=== PATIENT | male | born 1990 | race African-American/Black ===

== ENCOUNTER 2017-07-14 01:56 | Emergency (ER) | payer SELFPAY ==
[~2017-07-14] VITALS: Ht 182.9 cm; Wt 59.0 kg
[~2017-07-14 01:56] MED LIST: ONDA4TAB10 SL
[2017-07-14] MEDS ORDERED: ONDANSETRON PF 4 MG/2 ML VIAL. IV ONE (02:30)
[2017-07-14] MEDS ORDERED: IV NORMAL SALINE 1000ML BAG 1,000 ML IV ONE (02:30)
[2017-07-14 02:47] LABS: BILIRUBIN,URINE SMALL (NEG); GLUCOSE,URINE NEGATIVE (NEG); NITRITE,URINE NEGATIVE (NEG); PROTEIN,URINE 30 mg/dL (NEG-TRACE); UROBILINOGEN,URINE 0.2 mg/dL (0.2 mg/dL)
[2017-07-14 02:49] LABS: BASO # 0.1 x10^3/uL (0.0-0.2); BASO % 1 % (0-3); EOS % 0 % (0-3); HEMATOCRIT 42.5 % (39.0-53.0); HEMOGLOBIN 14.1 g/dL (13.0-17.5); LYMPH # 1.8 x10^3/uL (1.0-4.8); LYMPH % 28 % (24-48); MEAN CORPUSCULAR HEMOGLOBIN 30 pg (25-35); MEAN CORPUSCULAR HGB CONC 33 g/dL (31-37); MEAN CORPUSCULAR VOLUME 89 fL (79-100); MONO % 5 % (0-9); NEUT % 66 % (31-73); PLATELET COUNT 277 x10^3/uL (140-400); RED BLOOD COUNT 4.75 x10^6/uL (4.30-5.70); RED CELL DISTRIBUTION WIDTH 13.3 % (11.5-14.5); WHITE BLOOD COUNT 6.5 x10^3/uL (4.0-11.0)
[2017-07-14 02:59] LABS: CALCIUM 10.3 mg/dL (8.5-10.1); GFR 49.1; POTASSIUM 4.2 mmol/L (3.5-5.1)
[2017-07-14] MEDS ORDERED: HYDROmorphone 2 MG/ML VIAL IV ONE (03:00)
[2017-07-14 03:02] LABS: BACTERIA,URINE FEW /HPF (0-FEW); SQUAMOUS EPITHELIAL CELL,UR FEW /LPF
[2017-07-14 03:05] LABS: ALBUMIN 4.6 g/dL (3.4-5.0); ALBUMIN/GLOBULIN RATIO 1.2 (1.0-1.7); TOTAL BILIRUBIN 1.2 mg/dL (0.2-1.0); TOTAL PROTEIN 8.3 g/dL (6.4-8.2)
--- NOTE | 2017-07-14 03:06 | RAD ---
PQRS Compliance Statement: One or more of the following individualized dose reduction techniques were utilized for this examination: 1. Automated exposure control 2. Adjustment of the mA and/or kV according to patient size 3. Use of iterative reconstruction technique CT abdomen/pelvis without contrast July 14, 2017 INDICATION: Right lower quadrant pain. History of nephrectomy. COMPARISON: CT abdomen/pelvis March 22, 2016 TECHNIQUE: Multiple axial CT images of the abdomen and pelvis were obtained without intravenous contrast. Coronal and sagittal reformats are provided. FINDINGS: The lung bases are clear. Heart size is within normal limits. Evaluation of solid abdominal viscera is limited by lack of intravenous contrast. The liver, spleen, bilateral adrenal glands, pancreas and gallbladder are normal in appearance. The abdominal aorta is normal in course and caliber. Evaluation for abdominal and pelvic lymphadenopathy is limited by the lack of intravenous contrast and intraperitoneal fat. There is no free fluid or free intraperitoneal air. Right kidney surgically absent. No calculi are identified in the left kidney. Left ureter is difficult to evaluate due to the lack of intraperitoneal fat. Small large bowel are normal in caliber without evidence for bowel obstruction. The lack of intraperitoneal fat and oral contrast limits evaluation of the bowel. Scattered areas of retained oral contrast noted, however inadequate to effectively evaluate for bowel inflammatory changes. Appendix is not definitively visualized. No definite inflammatory changes are noted in the right lower quadrant, however this is significantly limited by lack of intraperitoneal fat. No pelvic masses are identified. Urinary bladder is within normal limits given degree of distention. No suspicious osseous lesions are identified. IMPRESSION: 1. Findings are significantly limited by lack of intravenous contrast and intraperitoneal fat. The appendix is not definitively visualized. 2. No evidence for bowel obstruction. 3. Status post right nephrectomy. Electronically signed by: Cristina Wheeler MD (07/14/2017 3:03 AM) [facility]
[2017-07-14] MEDS ORDERED: PROM25TA10 PO (03:48)
--- NOTE | 2017-07-14 03:48 | PHYS DOC ---
Past Medical History Past Medical History: Other Additional Past Medical Histor: R kidney (non-cancerous cyst) prior to removal ; Alcohol Syndrome Past Surgical History: Other Additional Past Surgical Histo: Right kidney removal (non-cancerous cyst found ) 02/25/17 Alcohol Use: None Drug Use: Marijuana Social History Narrative: daily Adult General Chief Complaint Chief Complaint: NAUSEA/VOMITING/DIARRHA HPI HPI Patient is a 27 year old gentleman who presents here today secondary to nausea and vomiting since 11 the morning. Patient denies any diarrhea. Patient has any fevers shakes chills dysuria frequency urgency cough cold rhinorrhea chest pain shortness of breath melena or bright red blood per rectum. Patient is complaining of some periumbilical discomfort. Patient has a history significant for a nephrectomy secondary to assist on his kidney. Patient reports she smokes and occasionally smokes marijuana. Patient denies any alcohol use. Patient denies any hypertension diabetes liver or lung problems. Review of systems: Constitutional: Denies fever or chills Eyes: Denies change in visual acuity, redness, or eye pain HENT: Denies nasal congestion or sore throat All other systems were reviewed and found to be within normal limits, except as documented in this note. Physical exam: Constitutional: Well developed, well nourished, no acute distress, non-toxic appearance. HENT: Normocephalic, atraumatic, bilateral external ears normal Eyes: PERRLA, EOMI, conjunctiva normal, no discharge. Neck: Normal range of motion, no tenderness, supple, no stridor. Cardiovascular:Heart rate regular rhythm Lungs & Thorax: Bilateral breath sounds clear to auscultation Abdomen: Bowel sounds normal, soft, mild tenderness tenderness to palpation diffusely. No rebound or guarding. Normal active bowel sounds. Patient does not present with any signs or symptoms of be consistent or concerning for an acute surgical abdomen., no masses, no pulsatile masses. Skin: Warm, dry, no erythema, no rash. Back: No tenderness, no CVA tenderness. Extremities: No tenderness, no cyanosis, no clubbing, ROM intact, no edema. Neurologic: Alert and oriented X 3, normal motor function, normal sensory function, no focal deficits noted. Psychologic: Affect normal, judgement normal, mood normal. Assessment and plan: This is a 27-year-old gentleman who presents here today secondary to nausea and vomiting. Patient's ER workup is been unremarkable except for an elevated creatinine. Patient's elevated creatinine is most likely secondary to dehydration from his nausea and vomiting. Patient's creatinine is 2.0 which is elevated from his last creatinine that we have here which was over a year ago. Patient's clinically and hemodynamically stable at this time. Patient has CT scan of his abdomen pelvis without IV contrast secondary to his history of a nephrectomy. Patient has been given IV fluids and analgesia and feels 100% improved in the ED at 3:30 AM. Patient's repeat abdominal exam shows no tenderness to palpation. Patient has no rebound or guarding. Was again patient is not exhibiting any signs or symptoms O be consistent with an acute surgical abdomen. Patient will be discharged home in stable condition with prescription for Reglan and to continue his Zofran. Patient is to follow-up with his primary care physician within one to 2 days for reevaluation of his symptoms. Current Medications Current Medications Current Medications Medications (Trade) Dose Ordered Sig/Joel Start Time Stop Time Status Last Admin Dose Admin Hydromorphone HCl (Dilaudid) 1 mg 1X ONCE 07/14/17 03:00 07/14/17 03:01 DC 07/14/17 02:39 1 MG Ondansetron HCl (Zofran) 4 mg 1X ONCE 07/14/17 02:30 07/14/17 02:31 DC 07/14/17 02:37 4 MG Sodium Chloride 1,000 ml @ 1,000 mls/hr 1X ONCE 07/14/17 02:30 07/14/17 03:29 DC 07/14/17 02:37 1,000 MLS/HR Allergies Allergies Allergies Coded Allergies Type Severity Reaction Last Updated Verified No Known Drug Allergies 03/18/16 No Current Patient Data Vital Signs Vital Signs Date Time Temp Pulse Resp B/P (MAP) Pulse Ox O2 Delivery O2 Flow Rate FiO2 07/14/17 02:39 21 98 07/14/17 02:15 97.8 59 119/79 (92) Room Air 97.8 Lab Values Laboratory Tests Test 07/14/17 02:00 07/14/17 02:30 Urine Collection Type Unknown Urine Color Noemí Urine Clarity Clear Urine pH 6.0 Urine Specific [place] >=1.030 Urine Protein 30 mg/dL (NEG-TRACE) Urine Glucose (UA) Negative mg/dL (NEG) Urine Ketones (Stick) 15 mg/dL (NEG) Urine Blood Negative (NEG) Urine Nitrite Negative (NEG) Urine Bilirubin Small (NEG) Urine Urobilinogen Dipstick 0.2 mg/dL (0.2 mg/dL) Urine Leukocyte Esterase Negative (NEG) Urine RBC 6-10 /HPF (0-2) Urine WBC 1-4 /HPF (0-4) Urine Squamous Epithelial Cells Few /LPF Urine Bacteria Few /HPF (0-FEW) Urine Mucus Marked /LPF White Blood Count 6.5 x10^3/uL (4.0-11.0) Red Blood Count 4.75 x10^6/uL (4.30-5.70) Hemoglobin 14.1 g/dL (13.0-17.5) Hematocrit 42.5 % (39.0-53.0) Mean Corpuscular Volume 89 fL (79-100) Mean Corpuscular Hemoglobin 30 pg (25-35) Mean Corpuscular Hemoglobin Concent 33 g/dL (31-37) Red Cell Distribution Width 13.3 % (11.5-14.5) Platelet Count 277 x10^3/uL (140-400) Neutrophils (%) (Auto) 66 % (31-73) Lymphocytes (%) (Auto) 28 % (24-48) Monocytes (%) (Auto) 5 % (0-9) Eosinophils (%) (Auto) 0 % (0-3) Basophils (%) (Auto) 1 % (0-3) Neutrophils # (Auto) 4.3 x10^3uL (1.8-7.7) Lymphocytes # (Auto) 1.8 x10^3/uL (1.0-4.8) Monocytes # (Auto) 0.3 x10^3/uL (0.0-1.1) Eosinophils # (Auto) 0.0 x10^3/uL (0.0-0.7) Basophils # (Auto) 0.1 x10^3/uL (0.0-0.2) Sodium Level 141 mmol/L (136-145) Potassium Level 4.2 mmol/L (3.5-5.1) Chloride Level 102 mmol/L (98-107) Carbon Dioxide Level 28 mmol/L (21-32) Anion Gap 11 (6-14) Blood Urea Nitrogen 19 mg/dL (8-26) Creatinine 2.0 mg/dL (0.7-1.3) H Estimated GFR (Cockcroft-Gault) 49.1 BUN/Creatinine Ratio 10 (6-20) Glucose Level 107 mg/dL (70-99) H Calcium Level 10.3 mg/dL (8.5-10.1) H Total Bilirubin 1.2 mg/dL (0.2-1.0) H Aspartate Amino Transferase (AST) 15 U/L (15-37) Alanine Aminotransferase (ALT) 22 U/L (16-63) Alkaline Phosphatase 118 U/L (46-116) H Total Protein 8.3 g/dL (6.4-8.2) H Albumin 4.6 g/dL (3.4-5.0) Albumin/Globulin Ratio 1.2 (1.0-1.7) Lipase 89 U/L (73-393) Laboratory Tests 07/14/17 02:30 Laboratory Tests 07/14/17 02:30 EKG EKG [] Radiology/Procedures Radiology/Procedures [] Course & Med Decision Making Course & Med Decision Making Pertinent Labs and Imaging studies reviewed. (See chart for details) [] Dragon Disclaimer Dragon Disclaimer This electronic medical record was generated, in whole or in part, using a voice recognition dictation system. Departure Departure Impression: Primary Impression: Abdominal pain Additional Impressions: Dehydration Elevated serum creatinine History of nephrectomy Disposition: HOME, SELF-CARE Condition: IMPROVED Referrals: NO PCP (PCP) Patient Instructions: Creatinine, Blood (Serum Creatinine), Dehydration, Adult , Nausea and Vomiting Additional Instructions: You were seen in the ER today secondary to dehydration from your nausea and vomiting. He workup in ER has been unremarkable. Your creatinine today is elevated compared to prior creatinine levels. This is most likely secondary to your dehydration however it is of greater concern in your case secondary to her history of a nephrectomy in the past. Please follow-up with her family doctor in one to 2 days to be reevaluated and have her creatinine repeated after he has been hydrated and feeling better at home. Please return the ER if you're not able keep down any liquids at any point in the next 12-24 hours. Continue taking her Zofran at home, we will add Phenergan in addition to Zofran to help you with your symptoms. Scripts Promethazine Hcl (PROMETHAZINE HCL) 25 Mg Tablet 1 TAB PO PRN Q6HRS Y for NAUSEA/VOMITING, #20 TAB Prov: LUCRECIA NORTON MD 07/14/17 Problem Qualifiers LUCRECIA NORTON MD Jul 14, 2017 03:48
[2017-07-14 04:08] VITALS: BP 112/67
== END 2017-07-14 04:15 | disposition home or self-care (01) ==
LOC: ER 01:56
DX: E86.0 Dehydration (principal); R79.89 Other specified abnormal findings of blood chemistry; R10.33 Periumbilical pain; F17.200 Nicotine dependence, unspecified, uncomplicated; F12.10 Cannabis abuse, uncomplicated; Z90.5 Acquired absence of kidney
CPT/HCPCS: 36415; 74176; 80053; 81001; 83690; 85025; 96361; 96374; 96375; 99285; J1170; J2405; J7030

== ENCOUNTER 2018-01-08 04:53 | Emergency (ER) | payer SELFPAY | END 2018-01-08 05:33 | disposition home or self-care (01) | LOC: ER 04:53 | DX: R10.84 Generalized abdominal pain (principal); G89.29 Other chronic pain; R11.2 Nausea with vomiting, unspecified; F12.10 Cannabis abuse, uncomplicated | CPT/HCPCS: 99281 ==

== ENCOUNTER 2018-04-07 12:22 | Emergency (ER) | payer SELFPAY ==
[2018-04-07] MEDS: IV NORMAL SALINE 1000ML BAG 1,000 ML IV (12:53)
[2018-04-07] MEDS: diphenhydrAMINE 50 MG/ML VIAL IVP (12:53)
[2018-04-07] MEDS: METOCLOPRAMIDE HCL 10 MG/2 ML VIAL. IV (12:53)
[2018-04-07 12:55] LABS: ADD MAN DIFF? NO
[2018-04-07 13:00] LABS: BASO # 0.1 x10^3/uL (0.0-0.2); BASO % 1 % (0-3); EOS # 0.1 x10^3/uL (0.0-0.7); EOS % 1 % (0-3); HEMOGLOBIN 15.9 g/dL (13.0-17.5); LYMPH # 2.3 x10^3/uL (1.0-4.8); LYMPH % 29 % (24-48); MEAN CORPUSCULAR HEMOGLOBIN 30 pg (25-35); MEAN CORPUSCULAR HGB CONC 34 g/dL (31-37); MEAN CORPUSCULAR VOLUME 87 fL (79-100); MONO # 0.5 x10^3/uL (0.0-1.1); MONO % 6 % (0-9); NEUT # 4.9 x10^3uL (1.8-7.7); NEUT % 63 % (31-73); PLATELET COUNT 399 x10^3/uL (140-400); RED BLOOD COUNT 5.39 x10^6/uL (4.30-5.70); RED CELL DISTRIBUTION WIDTH 13.6 % (11.5-14.5); WHITE BLOOD COUNT 7.8 x10^3/uL (4.0-11.0)
[2018-04-07 13:11] LABS: ANION GAP 14 (6-14); BLOOD UREA NITROGEN 14 mg/dL (8-26); BUN/CREATININE RATIO 8 (6-20); CALCIUM 10.4 mg/dL (8.5-10.1); CARBON DIOXIDE 25 mmol/L (21-32); CHLORIDE 99 mmol/L (98-107); CREATININE 1.8 mg/dL (0.7-1.3); GLUCOSE 107 mg/dL (70-99); POTASSIUM 4.3 mmol/L (3.5-5.1); SODIUM 138 mmol/L (136-145)
[2018-04-07 13:17] LABS: ALBUMIN 4.8 g/dL (3.4-5.0); ALBUMIN/GLOBULIN RATIO 1.1 (1.0-1.7); ALK PHOS 146 U/L (46-116); ALT (SGPT) 27 U/L (16-63); AST (SGOT) 20 U/L (15-37); LIPASE 181 U/L (73-393); TOTAL BILIRUBIN 0.8 mg/dL (0.2-1.0); TOTAL PROTEIN 9.2 g/dL (6.4-8.2)
[2018-04-07 13:40] LABS: BILIRUBIN,URINE SMALL (NEG); CLARITY,URINE CLEAR; COLOR,URINE YELLOW; GLUCOSE,URINE NEGATIVE (NEG); NITRITE,URINE NEGATIVE (NEG); PH,URINE 7.5; PROTEIN,URINE 30 mg/dL (NEG-TRACE); UROBILINOGEN,URINE 0.2 mg/dL (0.2 mg/dL)
[2018-04-07 13:44] LABS: BACTERIA,URINE 0 /HPF (0-FEW); RBC,URINE 0 /HPF (0-2); WBC,URINE OCC /HPF (0-4)
[2018-04-07 13:45] LABS: BARBITURATES NEG (NEG); BENZODIAZEPINES NEG (NEG); CANNABINOIDS POS (NEG); COCAINE NEG (NEG); METHADONE NEG (NEG); OPIATES NEG (NEG); PHENCYCLIDINE NEG (NEG)
[2018-04-07 13:50] LABS: AMPHETAMINE/METHAMPHETAMINE POS (NEG); ETHANOL, URINE NEG (NEG)
[2018-04-07] MEDS: fentaNYL PF VIAL 100 MCG/2 ML VIAL IV (13:54)
[2018-04-07] MEDS: MORPHINE SULFATE 4 MG/ML DISP.SYRIN. IV (15:07)
[2018-04-07] MEDS: PROCHLORPERAZINE 10 MG/2 ML VIAL. IV (15:07)
== END 2018-04-07 15:40 | disposition home or self-care (01) ==
LOC: ER 12:22
DX: G43.A0 Cyclical vomiting, in migraine, not intractable (principal); N18.9 Chronic kidney disease, unspecified; F12.10 Cannabis abuse, uncomplicated; Z90.5 Acquired absence of kidney; R00.0 Tachycardia, unspecified
CPT/HCPCS: 36415; 80053; 80307; 81001; 83690; 85025; 87086; 96374; 96375; 99284; J0780; J1200; J2270; J2765; J3010; J7030

== ENCOUNTER 2018-11-18 17:23 | Emergency (ER) | payer SELFPAY ==
[~2018-11-18] VITALS: Ht 182.9 cm; Wt 63.5 kg
[~2018-11-18 17:23] MED LIST changes: +ONDA4TAB7 PO; +PROM25TA10 PO; +TRAM50TA PO
[2018-11-18] MEDS ORDERED: ONDANSETRON PF 4 MG/2 ML VIAL. IV ONE (18:15)
[2018-11-18] MEDS ORDERED: DIPHTH,PERTUSS(ACELL),TET TOX 0.5 ML DISP.SYRIN. VAX IM ONE (18:15)
[2018-11-18] MEDS ORDERED: fentaNYL PF VIAL 100 MCG/2 ML VIAL IV ONE (18:15)
[2018-11-18] MEDS ORDERED: IV NORMAL SALINE 1000ML BAG 1,000 ML IV ONE (18:15)
[2018-11-18 18:17] LABS: BASO # 0.1 x10^3/uL (0.0-0.2); BASO % 1 % (0-3); EOS # 0.1 x10^3/uL (0.0-0.7); EOS % 2 % (0-3); HEMATOCRIT 45.1 % (39.0-53.0); HEMOGLOBIN 14.7 g/dL (13.0-17.5); LYMPH # 2.2 x10^3/uL (1.0-4.8); LYMPH % 27 % (24-48); MEAN CORPUSCULAR HEMOGLOBIN 28 pg (25-35); MEAN CORPUSCULAR HGB CONC 33 g/dL (31-37); MEAN CORPUSCULAR VOLUME 87 fL (79-100); MONO # 0.4 x10^3/uL (0.0-1.1); MONO % 4 % (0-9); NEUT # 5.4 x10^3uL (1.8-7.7); NEUT % 67 % (31-73); PLATELET COUNT 409 x10^3/uL (140-400); RED CELL DISTRIBUTION WIDTH 13.4 % (11.5-14.5); WHITE BLOOD COUNT 8.1 x10^3/uL (4.0-11.0)
[2018-11-18 18:23] LABS: CALCIUM 9.9 mg/dL (8.5-10.1); GFR 48.7; POTASSIUM 3.7 mmol/L (3.5-5.1)
[2018-11-18 18:29] LABS: ALBUMIN/GLOBULIN RATIO 0.8 (1.0-1.7); TOTAL BILIRUBIN 0.4 mg/dL (0.2-1.0)
--- NOTE | 2018-11-18 19:12 | RAD ---
ACUTE ABDOMEN SERIES History: NAUSEA, VOMITING, LOSS OF APPETITE X5 DAYS Comparison: None other than CT January 17, 2018 Findings: Single view chest and single supine and upright views of the abdomen are submitted. There is no infiltrate, pleural fluid, pneumothorax, or free air. Heart size is within normal limits. There is a nonobstructive bowel gas pattern, some greater degree gas distention of sigmoid colon. Impression: 1. There is an overall nonobstructive bowel gas pattern, somewhat greater degree of gas distention of the sigmoid colon. Electronically signed by: Sunny Whitfield MD (11/18/2018 7:09 PM) [facility]
[2018-11-18 19:24] LABS: BILIRUBIN,URINE SMALL (NEG); CLARITY,URINE CLEAR; COLOR,URINE YELLOW; NITRITE,URINE NEGATIVE (NEG); PH,URINE 6.5; PROTEIN,URINE 30 mg/dL (NEG-TRACE); UROBILINOGEN,URINE 0.2 mg/dL (0.2 mg/dL)
[2018-11-18 19:30] LABS: AMPHETAMINE/METHAMPHETAMINE NEG (NEG); BARBITURATES NEG (NEG); BENZODIAZEPINES NEG (NEG); CANNABINOIDS POS (NEG); COCAINE POS (NEG); METHADONE NEG (NEG); OPIATES POS (NEG); PHENCYCLIDINE NEG (NEG)
[2018-11-18 19:31] LABS: BACTERIA,URINE FEW /HPF (0-FEW); RBC,URINE 0 /HPF (0-2); SQUAMOUS EPITHELIAL CELL,UR OCC /LPF; WBC,URINE >40 /HPF (0-4)
[2018-11-18 20:00] VITALS: BP 122/55
[2018-11-18] MEDS ORDERED: ONDA4TAB12 PO (21:02)
[2018-11-18] MEDS ORDERED: TRAM50TA PO (21:02)
--- NOTE | 2018-11-18 21:03 | PHYS DOC ---
Past Medical History Past Medical History: Other Additional Past Medical Histor: ALCOHOL SYNDROME, cystic kidneys, CYCLIC VOMITING SYNDROME (KRISTINE BIRMINGHAM APRN) Past Surgical History: Other Additional Past Surgical Histo: LEFT NEPHRECTOMY 2017 (KRISTINE BIRMINGHAM APRN) Alcohol Use: None Drug Use: Marijuana (KRISTINE BIRMINGHAM APRN) Adult General Chief Complaint Chief Complaint: NAUSEA/VOMITING/DIARRHA HPI HPI Patient is a 28 year old male who presents with nausea and vomiting for several days. The patient states that he had been treated at for similar symptoms and was discharged 3 days ago. The patient states that his nausea and vomiting came back yesterday. He only has one kidney and states that he has reduced function at about 35%. He denies blood or mucus in his emesis or stool. He states that he has been using marijuana and cocaine to control his pain. He denies chest pain or shortness of breath. (KRISTINE BIRMINGHAM APRN) Review of Systems Review of Systems Constitutional: Denies fever or chills [] Eyes: Denies change in visual acuity, redness, or eye pain [] HENT: Denies nasal congestion or sore throat [] Respiratory: Denies cough or shortness of breath [] Cardiovascular: No additional information not addressed in HPI [] GI: See history of present illness : Denies dysuria or hematuria [] Musculoskeletal: Denies back pain or joint pain [] Integument: Denies rash or skin lesions [] Neurologic: Denies headache, focal weakness or sensory changes [] Endocrine: Denies polyuria or polydipsia [] All other systems were reviewed and found to be within normal limits, except as documented in this note. (KRISTIEN BIRMINGHAM APRN) Current Medications Current Medications Current Medications Medications (Trade) Dose Ordered Sig/Joel Start Time Stop Time Status Last Admin Dose Admin Ceftriaxone Sodium (Rocephin Im) 1 gm 1X ONCE 11/18/18 21:15 11/18/18 21:16 DC 11/18/18 21:21 1 GM Diphtheria/ Tetanus/Acell Pertussis (Boostrix) 0.5 ml ONCE ONCE 11/18/18 18:15 11/18/18 18:16 UNV Fentanyl Citrate (Fentanyl 2ml Vial) 75 mcg 1X ONCE 11/18/18 18:15 11/18/18 18:16 DC 11/18/18 18:20 75 MCG Lidocaine HCl (Xylocaine-Mpf 1% 2ml Vial) 2 ml 1X ONCE 11/18/18 21:15 11/18/18 21:16 DC 11/18/18 21:20 2 ML Ondansetron HCl (Zofran) 4 mg 1X ONCE 11/18/18 18:15 11/18/18 18:16 DC 11/18/18 18:19 4 MG Sodium Chloride 1,000 ml @ 1,000 mls/hr 1X ONCE 11/18/18 18:15 11/18/18 19:14 DC 11/18/18 18:19 1,000 MLS/HR (ALEX MILLER MD) Allergies Allergies Allergies Coded Allergies Type Severity Reaction Last Updated Verified No Known Drug Allergies 03/18/16 No (ALEX MILLER MD) Physical Exam Physical Exam Constitutional: Well developed, well nourished, no acute distress, non-toxic appearance. [] HENT: Normocephalic, atraumatic, bilateral external ears normal, oropharynx moist, no oral exudates, nose normal. [] Eyes: PERRLA, EOMI, conjunctiva normal, no discharge. [] Neck: Normal range of motion, no tenderness, supple, no stridor. [] Cardiovascular:Heart rate regular rhythm, no murmur [] Lungs & Thorax: Bilateral breath sounds clear to auscultation [] Abdomen: Bowel sounds normal, soft, mild epigastric tenderness, no guarding, no masses, no pulsatile masses. [] Skin: Warm, dry, no erythema, no rash. [] Back: No tenderness, no CVA tenderness. [] Extremities: No tenderness, no cyanosis, no clubbing, ROM intact, no edema. [] Neurologic: Alert and oriented X 3, normal motor function, normal sensory function, no focal deficits noted. [] Psychologic: Affect normal, judgement normal, mood normal. [] (KRISTINE BIRMINGHAM APRN) Current Patient Data Vital Signs Vital Signs Date Time Temp Pulse Resp B/P (MAP) Pulse Ox O2 Delivery O2 Flow Rate FiO2 11/18/18 20:00 67 16 122/55 (77) 99 Room Air 11/18/18 18:02 98.2 98.2 (ALEX MILLER MD) Lab Values Laboratory Tests Test 11/18/18 18:00 11/18/18 19:15 White Blood Count 8.1 x10^3/uL (4.0-11.0) Red Blood Count 5.20 x10^6/uL (4.30-5.70) Hemoglobin 14.7 g/dL (13.0-17.5) Hematocrit 45.1 % (39.0-53.0) Mean Corpuscular Volume 87 fL (79-100) Mean Corpuscular Hemoglobin 28 pg (25-35) Mean Corpuscular Hemoglobin Concent 33 g/dL (31-37) Red Cell Distribution Width 13.4 % (11.5-14.5) Platelet Count 409 x10^3/uL (140-400) H Neutrophils (%) (Auto) 67 % (31-73) Lymphocytes (%) (Auto) 27 % (24-48) Monocytes (%) (Auto) 4 % (0-9) Eosinophils (%) (Auto) 2 % (0-3) Basophils (%) (Auto) 1 % (0-3) Neutrophils # (Auto) 5.4 x10^3uL (1.8-7.7) Lymphocytes # (Auto) 2.2 x10^3/uL (1.0-4.8) Monocytes # (Auto) 0.4 x10^3/uL (0.0-1.1) Eosinophils # (Auto) 0.1 x10^3/uL (0.0-0.7) Basophils # (Auto) 0.1 x10^3/uL (0.0-0.2) Sodium Level 137 mmol/L (136-145) Potassium Level 3.7 mmol/L (3.5-5.1) Chloride Level 96 mmol/L (98-107) L Carbon Dioxide Level 35 mmol/L (21-32) H Anion Gap 6 (6-14) Blood Urea Nitrogen 13 mg/dL (8-26) Creatinine 2.0 mg/dL (0.7-1.3) H Estimated GFR (Cockcroft-Gault) 48.7 BUN/Creatinine Ratio 7 (6-20) Glucose Level 108 mg/dL (70-99) H Calcium Level 9.9 mg/dL (8.5-10.1) Total Bilirubin 0.4 mg/dL (0.2-1.0) Aspartate Amino Transferase (AST) 13 U/L (15-37) L Alanine Aminotransferase (ALT) 20 U/L (16-63) Alkaline Phosphatase 130 U/L (46-116) H Total Protein 9.0 g/dL (6.4-8.2) H Albumin 4.0 g/dL (3.4-5.0) Albumin/Globulin Ratio 0.8 (1.0-1.7) L Urine Collection Type Void Urine Color Yellow Urine Clarity Clear Urine pH 6.5 Urine Specific [place] >=1.030 Urine Protein 30 mg/dL (NEG-TRACE) Urine Glucose (UA) Negative mg/dL (NEG) Urine Ketones (Stick) Negative mg/dL (NEG) Urine Blood Negative (NEG) Urine Nitrite Negative (NEG) Urine Bilirubin Small (NEG) Urine Urobilinogen Dipstick 0.2 mg/dL (0.2 mg/dL) Urine Leukocyte Esterase Moderate (NEG) Urine RBC 0 /HPF (0-2) Urine WBC >40 /HPF (0-4) Urine Squamous Epithelial Cells Occ /LPF Urine Bacteria Few /HPF (0-FEW) Urine Mucus Mod /LPF Urine Opiates Screen Pos (NEG) Urine Methadone Screen Neg (NEG) Urine Barbiturates Neg (NEG) Urine Phencyclidine Screen Neg (NEG) Urine Amphetamine/Methamphetamine Neg (NEG) Urine Benzodiazepines Screen Neg (NEG) Urine Cocaine Screen Pos (NEG) Urine Cannabinoids Screen Pos (NEG) Urine Ethyl Alcohol Neg (NEG) Laboratory Tests 11/18/18 18:00 Laboratory Tests 11/18/18 18:00 Microbiology 11/18/18 Urine Culture - Final, Complete 11/18/18 Urine Culture Result 1 (JEY) - Final, Complete (ALEX MILLER MD) EKG EKG [] (KRISTINE BIRMINGHAM APRN) Radiology/Procedures Radiology/Procedures []PATIENT: LILLIAN BRANCH LACCOUNT: [id number]#: [id number] : 1990 LOCATION: ER AGE: 28 SEX: M EXAM STATUS: PRE ER ORD. PHYSICIAN: KRISTINE BIRMINGHAM APRN REASON: nausea, vomiting PROCEDURE: ACUTE ABDOMEN SERIES ACUTE ABDOMEN SERIES History: NAUSEA, VOMITING, LOSS OF APPETITE X5 DAYS Comparison: None other than CT January 17, 2018 Findings: Single view chest and single supine and upright views of the abdomen are submitted. There is no infiltrate, pleural fluid, pneumothorax, or free air. Heart size is within normal limits. There is a nonobstructive bowel gas pattern, some greater degree gas distention of sigmoid colon. Impression: 1. There is an overall nonobstructive bowel gas pattern, somewhat greater degree of gas distention of the sigmoid colon. Electronically signed by: Iliana Machado MD (11/18/2018 7:09 PM) [facility] DICTATED and SIGNED BY: ILIANA MACHADO MD DATE: 11/18/181908 (KRISTINE BIRMINGHAM APRN) Course & Med Decision Making Course & Med Decision Making Pertinent Labs and Imaging studies reviewed. (See chart for details) []The patient is positive for urinary tract infection. He has been given a small amount of pain medicine as well as antibiotics and a Zofran to control his symptoms. He is to follow-up with his primary care provider. He is in agreement with this plan. (KRISTINE BIRMINGHAM APRN) Course & Med Decision Making Staff Physician Addendum: I was working in the ER during the course of this patient's visit. I was available for consultation as needed, but I was not directly involved in the care of this patient. (ALEX MILLER MD) Dragon Disclaimer Dragon Disclaimer This electronic medical record was generated, in whole or in part, using a voice recognition dictation system. (KRISTINE BIRMINGHAM APRN) Departure Departure Impression: Primary Impression: Nausea and vomiting Disposition: 01 HOME, SELF-CARE Condition: STABLE Referrals: NO PCP (PCP) Patient Instructions: Nausea and Vomiting Additional Instructions: Take the medication as directed. Increase fluids and rest. Follow-up with your primary care provider in 3 days for recheck. If worsening return to the emergency department. Scripts Cephalexin (KEFLEX) 500 Mg Capsule 500 MG PO QID for UTI for 10 Days, #40 CAP Prov: KRISTINE BIRMINGHAM APRN 11/18/18 Tramadol Hcl (TRAMADOL HCL) 50 Mg Tablet 50 MG PO DAILY PRN for PAIN, #10 TAB 0 Refills Prov: KRISTINE BIRMINGHAM APRN 11/18/18 Ondansetron (ONDANSETRON ODT) 4 Mg Tab.rapdis 1 TAB PO PRN Q6-8HRS for nausea, #16 TAB Prov: KRISTINE BIRMINGHAM APRN 11/18/18 KRISTINE BIRMINGHAM APRN Nov 18, 2018 21:03 ALEX MILLER MD Nov 28, 2018 17:09
[2018-11-18] MEDS ORDERED: CEPH-264 PO (21:13)
[2018-11-18] MEDS ORDERED: cefTRIAXone IM 1 GM VIAL IM ONE (21:15)
[2018-11-18] MEDS ORDERED: LIDOCAINE 1% PF 2 ML VIAL. INJ ONE (21:15)
== END 2018-11-18 21:23 | disposition home or self-care (01) ==
LOC: ER 17:23
DX: R11.2 Nausea with vomiting, unspecified (principal); R10.13 Epigastric pain; Z90.5 Acquired absence of kidney
CPT/HCPCS: 36415; 74022; 80053; 80307; 81001; 85025; 87086; 96361; 96372; 96374; 96375; 99284; J0696; J2405; J3010; J7030

== ENCOUNTER 2019-01-28 10:30 | Emergency (ER) | payer SELFPAY ==
[~2019-01-28] VITALS: Ht 182.9 cm; Wt 59.0 kg
[~2019-01-28 10:30] MED LIST changes: +CEPH-264 PO; +ONDA4TAB12 PO
[2019-01-28] MEDS ORDERED: IV NORMAL SALINE 1000ML BAG 1,000 ML IV SCH (10:42)
[2019-01-28] MEDS ORDERED: ONDANSETRON PF 4 MG/2 ML VIAL. IV ONE (10:45)
[2019-01-28] MEDS ORDERED: fentaNYL PF VIAL 100 MCG/2 ML VIAL IV ONE (10:45)
[2019-01-28] MEDS ORDERED: diphenhydrAMINE 50 MG/ML VIAL IVP ONE (11:00)
[2019-01-28] MEDS ORDERED: IV NORMAL SALINE 1000ML BAG 1,000 ML IV ONE (11:00)
[2019-01-28 11:11] LABS: BASO % 1 % (0-3); EOS % 0 % (0-3); HEMATOCRIT 43.4 % (39.0-53.0); HEMOGLOBIN 14.4 g/dL (13.0-17.5); LYMPH # 1.3 x10^3/uL (1.0-4.8); LYMPH % 16 % (24-48); MEAN CORPUSCULAR HEMOGLOBIN 29 pg (25-35); MEAN CORPUSCULAR HGB CONC 33 g/dL (31-37); MEAN CORPUSCULAR VOLUME 87 fL (79-100); MONO # 0.3 x10^3/uL (0.0-1.1); MONO % 3 % (0-9); NEUT # 6.3 x10^3uL (1.8-7.7); NEUT % 80 % (31-73); PLATELET COUNT 343 x10^3/uL (140-400); RED BLOOD COUNT 4.98 x10^6/uL (4.30-5.70); RED CELL DISTRIBUTION WIDTH 14.6 % (11.5-14.5); WHITE BLOOD COUNT 7.9 x10^3/uL (4.0-11.0)
[2019-01-28 11:32] LABS: CALCIUM 10.9 mg/dL (8.5-10.1); CREATININE 1.7 mg/dL (0.7-1.3); GFR 58.8; POTASSIUM 3.8 mmol/L (3.5-5.1)
[2019-01-28 11:37] LABS: ALBUMIN/GLOBULIN RATIO 1.4 (1.0-1.7); TOTAL BILIRUBIN 1.1 mg/dL (0.2-1.0); TOTAL PROTEIN 8.7 g/dL (6.4-8.2)
--- NOTE | 2019-01-28 12:03 | PHYS DOC ---
Past Medical History Past Medical History: Renal Disease, Other Additional Past Medical Histor: ALCOHOL SYNDROME, cystic kidneys, CYCLIC VOMITING SYNDROME Past Surgical History: Other Additional Past Surgical Histo: LEFT NEPHRECTOMY 2017 Alcohol Use: None Drug Use: Marijuana Adult General Chief Complaint Chief Complaint: ABDOMINAL PAIN HPI HPI Patient is a 28 year old male who presents with pending of vomiting and abdominal pain. Patient has history of cyclic vomiting syndrome and chronic renal insufficiency related to unilateral nephrectomy. Patient complaining of frequent episodes of nonbloody vomiting for the last 48 hours and states he vomited more than 10 times every day. Patient complaining of generalized abdominal sharp pain and rated his pain 10 over 10. Patient denies diarrhea and constipation, chest pain and shortness of breath, sick contact, fever and chills, drug abuse. Patient has had episodes of cyclic vomiting syndrome for the last 2 years intermittently. Review of Systems Review of Systems Constitutional: Denies fever or chills [] Eyes: Denies change in visual acuity, redness, or eye pain [] HENT: Denies nasal congestion or sore throat [] Respiratory: Denies cough or shortness of breath [] Cardiovascular: No additional information not addressed in HPI [] GI: Reports abdominal pain, nausea, vomiting, denies bloody stools or diarrhea [] : Denies dysuria or hematuria [] Musculoskeletal: Denies back pain or joint pain [] Integument: Denies rash or skin lesions [] Neurologic: Denies headache, focal weakness or sensory changes [] Endocrine: Denies polyuria or polydipsia [] All other systems were reviewed and found to be within normal limits, except as documented in this note. Current Medications Current Medications Current Medications Medications (Trade) Dose Ordered Sig/Joel Start Time Stop Time Status Last Admin Dose Admin Fentanyl Citrate (Fentanyl 2ml Vial) 50 mcg 1X ONCE 01/28/19 10:45 01/28/19 10:47 DC 01/28/19 10:56 50 MCG Ondansetron HCl (Zofran) 4 mg 1X ONCE 01/28/19 10:45 01/28/19 10:47 DC 01/28/19 10:55 4 MG Sodium Chloride 1,000 ml @ 1,000 mls/hr Q1H 01/28/19 10:42 01/28/19 11:41 DC 01/28/19 10:55 1,000 MLS/HR Allergies Allergies Allergies Coded Allergies Type Severity Reaction Last Updated Verified No Known Drug Allergies 03/18/16 No Physical Exam Physical Exam Constitutional: Well developed, well nourished, mild distress, non-toxic a ppearance. [] HENT: Normocephalic, atraumatic, oropharynx moist. Eyes: PERRLA, EOMI, conjunctiva normal, no discharge. [] Neck: Normal range of motion, no tenderness, supple, no stridor. [] Cardiovascular:Heart rate regular rhythm, no murmur [] Lungs & Thorax: Bilateral breath sounds clear to auscultation [] Abdomen: Bowel sounds normal, soft, no tenderness, generalized volunteerly guarding, no masses, no pulsatile masses. [] Skin: Warm, dry, no erythema, no rash. [] Back: No tenderness, no CVA tenderness. [] Extremities: No tenderness, no cyanosis, no clubbing, ROM intact, no edema. [] Neurologic: Alert and oriented X 3, normal motor function, normal sensory function, no focal deficits noted. [] Psychologic: Affect anxious. Current Patient Data Vital Signs Vital Signs Date Time Temp Pulse Resp B/P (MAP) Pulse Ox O2 Delivery O2 Flow Rate FiO2 01/28/19 10:30 98.4 110 22 126/83 (97) Room Air 98.4 Lab Values Laboratory Tests Test 01/28/19 10:40 White Blood Count 7.9 x10^3/uL (4.0-11.0) Red Blood Count 4.98 x10^6/uL (4.30-5.70) Hemoglobin 14.4 g/dL (13.0-17.5) Hematocrit 43.4 % (39.0-53.0) Mean Corpuscular Volume 87 fL (79-100) Mean Corpuscular Hemoglobin 29 pg (25-35) Mean Corpuscular Hemoglobin Concent 33 g/dL (31-37) Red Cell Distribution Width 14.6 % (11.5-14.5) H Platelet Count 343 x10^3/uL (140-400) Neutrophils (%) (Auto) 80 % (31-73) H Lymphocytes (%) (Auto) 16 % (24-48) L Monocytes (%) (Auto) 3 % (0-9) Eosinophils (%) (Auto) 0 % (0-3) Basophils (%) (Auto) 1 % (0-3) Neutrophils # (Auto) 6.3 x10^3uL (1.8-7.7) Lymphocytes # (Auto) 1.3 x10^3/uL (1.0-4.8) Monocytes # (Auto) 0.3 x10^3/uL (0.0-1.1) Eosinophils # (Auto) 0.0 x10^3/uL (0.0-0.7) Basophils # (Auto) 0.0 x10^3/uL (0.0-0.2) Sodium Level 146 mmol/L (136-145) H Potassium Level 3.8 mmol/L (3.5-5.1) Chloride Level 106 mmol/L (98-107) Carbon Dioxide Level 24 mmol/L (21-32) Anion Gap 16 (6-14) H Blood Urea Nitrogen 16 mg/dL (8-26) Creatinine 1.7 mg/dL (0.7-1.3) H Estimated GFR (Cockcroft-Gault) 58.8 BUN/Creatinine Ratio 9 (6-20) Glucose Level 129 mg/dL (70-99) H Lactic Acid Level 1.8 mmol/L (0.4-2.0) Calcium Level 10.9 mg/dL (8.5-10.1) H Total Bilirubin 1.1 mg/dL (0.2-1.0) H Aspartate Amino Transferase (AST) 15 U/L (15-37) Alanine Aminotransferase (ALT) 23 U/L (16-63) Alkaline Phosphatase 144 U/L (46-116) H Total Protein 8.7 g/dL (6.4-8.2) H Albumin 5.0 g/dL (3.4-5.0) Albumin/Globulin Ratio 1.4 (1.0-1.7) Lipase 180 U/L (73-393) Laboratory Tests 01/28/19 10:40 Laboratory Tests 01/28/19 10:40 EKG EKG [] Radiology/Procedures Radiology/Procedures [] Course & Med Decision Making Course & Med Decision Making Pertinent Labs reviewed. (See chart for details) Evaluation of patient in ER showed 28-year-old male patient with history of cyclic vomiting syndrome presented to ER with complaining of multiple episodes of vomiting for the last 48 hours and severe abdominal pain. Patient was anxious at arrival to ER and one episode of vomiting at arrival. Patient was treated with IV fluid, Zofran, fentanyl, Benadryl and Ativan and was able to fall asleep. Labs was unremarkable without electrolyte problem or sign of dehydration. Patient has chronic renal failure because of history of nephrectomy with improvement of creatinine at 1.7. Patient mother was concerned for getting stronger pain medication and needs for admission. She was informed that patient is to follow-up with his primary care physician regarding chronic problem with cyclic vomiting syndrome for referral to GI specialist. I've spoken with the patient and/or caregivers. I've explained the patient's condition, diagnosis and treatment plan based on information available to me at this time. I've answered the patient's and/or caregivers questions and addressed any concerns. The patient and/or caregivers have a good understanding the mamadou grider's diagnosis, condition and treatment plan as can be expected at this point. Vital signs have been stabilized. The patient's condition is stable for discharge from the emergency department. The patient will pursue further outpatient evaluation with her primary care provider or other designated consulting physician as outlined in the discharge instructions. Patient and/or caregivers are agreeable to this plan of care and follow-up instructions have been explained in detail. The patient and/or caregivers have received these instructions in written format and expressed understanding of these discharge instructions. The patient and her caregivers are aware that if any significant change in condition or worsening of symptoms should prompt him to immediately return to this of the closest emergency department. If an emergent department is not readily available I would encourage him to call 911. Nathaly Disclaimer Dragon Disclaimer This electronic medical record was generated, in whole or in part, using a voice recognition dictation system. Departure Departure Impression: Primary Impression: Nausea and vomiting Additional Impressions: Cyclic vomiting syndrome Chronic renal insufficiency Abdominal pain Disposition: HOME, SELF-CARE (at 1224) Condition: IMPROVED Referrals: NO PCP (PCP) Patient Instructions: Chronic Renal Insufficiency, Cyclic Vomiting Syndrome, Nausea and Vomiting Additional Instructions: Drink plenty of liquids Follow-up with your primary care physician in 3-5 days Return to ER if not getting better Scripts Ondansetron Hcl (ZOFRAN) 4 Mg Tablet 1 TAB PO PRN Q6-8HRS for nausea, #12 TAB Prov: CARO WELCH MD 01/28/19 Problem Qualifiers Primary Impression: Nausea and vomiting Vomiting type: unspecified Vomiting Intractability: unspecified Qualified Codes: R11.2 - Nausea with vomiting, unspecified Additional Impressions: Cyclic vomiting syndrome Vomiting Intractability: unspecified Nausea presence: unspecified Qualified Codes: G43.A0 - Cyclical vomiting, not intractable Chronic renal insufficiency Chronic kidney disease stage: unspecified stage Qualified Codes: N18.9 - Chronic kidney disease, unspecified Abdominal pain Abdominal location: unspecified location Qualified Codes: R10.9 - Unspecified abdominal pain CARO WELCH MD Jan 28, 2019 12:03
[2019-01-28] MEDS ORDERED: ONDA4TAB7 PO (12:26)
[2019-01-28 13:00] VITALS: BP 115/80
== END 2019-01-28 13:21 | disposition home or self-care (01) ==
LOC: ER 10:30 → UNDOADMIN 10:51 → 5 NORTH 10:51 → ER 13:21
DX: G43.A0 Cyclical vomiting, in migraine, not intractable (principal); N18.9 Chronic kidney disease, unspecified; R10.84 Generalized abdominal pain; Z90.5 Acquired absence of kidney
CPT/HCPCS: 36415; 80053; 83605; 83690; 85025; 96361; 96374; 96375; 99284; J1200; J2060; J2405; J3010; J7030; 96376; 99285-25

== ENCOUNTER 2019-09-29 15:25 | Emergency (ER) | payer SELFPAY ==
[~2019-09-29] VITALS: Ht 182.9 cm; Wt 66.8 kg
[2019-09-29 16:14] LABS: BASO # 0.1 x10^3/uL (0.0-0.2); BASO % 1 % (0-3); EOS # 0.1 x10^3/uL (0.0-0.7); EOS % 1 % (0-3); HEMATOCRIT 42.8 % (39.0-53.0); HEMOGLOBIN 13.9 g/dL (13.0-17.5); LYMPH # 1.4 x10^3/uL (1.0-4.8); LYMPH % 17 % (24-48); MEAN CORPUSCULAR HEMOGLOBIN 29 pg (25-35); MEAN CORPUSCULAR HGB CONC 33 g/dL (31-37); MEAN CORPUSCULAR VOLUME 87 fL (79-100); MONO # 0.6 x10^3/uL (0.0-1.1); MONO % 8 % (0-9); NEUT # 5.9 x10^3/uL (1.8-7.7); NEUT % 73 % (31-73); PLATELET COUNT 258 x10^3/uL (140-400); RED CELL DISTRIBUTION WIDTH 13.9 % (11.5-14.5); WHITE BLOOD COUNT 8.1 x10^3/uL (4.0-11.0)
[2019-09-29] MEDS ORDERED: ONDANSETRON PF 4 MG/2 ML VIAL. IVP ONE (16:15)
[2019-09-29] MEDS ORDERED: IV NORMAL SALINE 1000ML BAG 1,000 ML IV ONE (16:15)
[2019-09-29] MEDS ORDERED: MORPHINE SULFATE 10 MG/ML VIAL. IV ONE (16:30)
[2019-09-29] MEDS ORDERED: PROCHLORPERAZINE 10 MG/2 ML VIAL. IV ONE (16:30)
[2019-09-29 16:54] LABS: CALCIUM 9.7 mg/dL (8.5-10.1); CREATININE 1.6 mg/dL (0.7-1.3); GFR 62.6; POTASSIUM 4.3 mmol/L (3.5-5.1)
[2019-09-29 17:00] LABS: ALBUMIN 4.1 g/dL (3.4-5.0); ALBUMIN/GLOBULIN RATIO 1.1 (1.0-1.7); TOTAL BILIRUBIN 0.6 mg/dL (0.2-1.0)
[2019-09-29 18:08] LABS: BILIRUBIN,URINE NEGATIVE (NEG); CLARITY,URINE CLEAR; COLOR,URINE YELLOW; NITRITE,URINE NEGATIVE (NEG); PROTEIN,URINE 30 mg/dL (NEG-TRACE); UROBILINOGEN,URINE 0.2 mg/dL (0.2 mg/dL)
[2019-09-29 18:11] LABS: BARBITURATES NEG (NEG); BENZODIAZEPINES NEG (NEG); CANNABINOIDS POS (NEG); COCAINE NEG (NEG); METHADONE NEG (NEG); OPIATES POS (NEG); PHENCYCLIDINE NEG (NEG)
[2019-09-29 18:16] LABS: BACTERIA,URINE 0 /HPF (0-FEW); RBC,URINE 0 /HPF (0-2); SQUAMOUS EPITHELIAL CELL,UR FEW /LPF
[2019-09-29 18:19] LABS: AMPHETAMINE/METHAMPHETAMINE NEG (NEG)
[2019-09-29] MEDS ORDERED: ONDA4TAB12 PO (18:40)
--- NOTE | 2019-09-29 18:40 | PHYS DOC ---
Past Medical History Past Medical History: Renal Disease, Other Additional Past Medical Histor: ALCOHOL SYNDROME, cystic kidneys, CYCLIC VOMITING SYNDROME Past Surgical History: Other Additional Past Surgical Histo: LEFT NEPHRECTOMY 2017 Alcohol Use: None Drug Use: Marijuana Adult General Chief Complaint Chief Complaint: ABDOMINAL PAIN HPI HPI Patient is a 29 year old white male with history of kidney disease who presents to the ED today complaining of nausea vomiting and slight diarrhea that began at noon today. Patient is in the ED with the sister who reports patient typically gets similar symptoms when he is dehydrated. Patient denies any exacerbating or relieving factors. Sister reports they just lost their mother and patient could still be moaning. Review of Systems Review of Systems Constitutional: Denies fever or chills [] Eyes: Denies change in visual acuity, redness, or eye pain [] HENT: Denies nasal congestion or sore throat [] Respiratory: Denies cough or shortness of breath [] Cardiovascular: No additional information not addressed in HPI [] GI: Reports left lower quadrant abdominal pain with nausea vomiting and diarrhea : Denies dysuria or hematuria [] Musculoskeletal: Denies back pain or joint pain [] Integument: Denies rash or skin lesions [] Neurologic: Denies headache, focal weakness or sensory changes [] All other systems were reviewed and found to be within normal limits, except as documented in this note. Current Medications Current Medications Current Medications Medications (Trade) Dose Ordered Sig/Joel Start Time Stop Time Status Last Admin Dose Admin Morphine Sulfate (Morphine Sulfate) 5 mg 1X ONCE 09/29/19 16:30 09/29/19 16:31 DC 09/29/19 16:36 5 MG Ondansetron HCl (Zofran) 4 mg 1X ONCE 09/29/19 16:15 09/29/19 16:16 DC 09/29/19 16:12 4 MG Prochlorperazine Edisylate (Compazine) 10 mg 1X ONCE 09/29/19 16:30 09/29/19 16:31 DC 09/29/19 16:36 10 MG Sodium Chloride 1,000 ml @ 1,000 mls/hr 1X ONCE 09/29/19 16:15 09/29/19 17:14 DC 09/29/19 16:12 1,000 MLS/HR Allergies Allergies Allergies Coded Allergies Type Severity Reaction Last Updated Verified No Known Drug Allergies 03/18/16 No Physical Exam Physical Exam Constitutional: Well developed, well nourished, no acute distress, non-toxic appearance. [] HENT: Normocephalic, atraumatic, bilateral external ears normal, oropharynx moist, no oral exudates, nose normal. [] Eyes: PERRLA, EOMI, conjunctiva normal, no discharge. [] Neck: Normal range of motion, no tenderness, supple, no stridor. [] Cardiovascular:Heart rate regular rhythm, no murmur [] Lungs & Thorax: Bilateral breath sounds clear to auscultation [] Abdomen: Bowel sounds normal, soft, no tenderness, no masses, no pulsatile masses. [] Skin: Warm, dry, no erythema, no rash. [] Back: No tenderness, no CVA tenderness. [] Extremities: No tenderness, no cyanosis, no clubbing, ROM intact, no edema. [] Neurologic: Alert and oriented X 3, normal motor function, normal sensory function, no focal deficits noted. [] Psychologic: Affect normal, judgement normal, mood normal. [] Current Patient Data Vital Signs Vital Signs Date Time Temp Pulse Resp B/P (MAP) Pulse Ox O2 Delivery O2 Flow Rate FiO2 09/29/19 16:36 Room Air 09/29/19 15:30 98.0 45 14 173/88 (116) 100 98.0 Lab Values Laboratory Tests Test 09/29/19 15:56 09/29/19 17:55 White Blood Count 8.1 x10^3/uL (4.0-11.0) Red Blood Count 4.90 x10^6/uL (4.30-5.70) Hemoglobin 13.9 g/dL (13.0-17.5) Hematocrit 42.8 % (39.0-53.0) Mean Corpuscular Volume 87 fL (79-100) Mean Corpuscular Hemoglobin 29 pg (25-35) Mean Corpuscular Hemoglobin Concent 33 g/dL (31-37) Red Cell Distribution Width 13.9 % (11.5-14.5) Platelet Count 258 x10^3/uL (140-400) Neutrophils (%) (Auto) 73 % (31-73) Lymphocytes (%) (Auto) 17 % (24-48) L Monocytes (%) (Auto) 8 % (0-9) Eosinophils (%) (Auto) 1 % (0-3) Basophils (%) (Auto) 1 % (0-3) Neutrophils # (Auto) 5.9 x10^3/uL (1.8-7.7) Lymphocytes # (Auto) 1.4 x10^3/uL (1.0-4.8) Monocytes # (Auto) 0.6 x10^3/uL (0.0-1.1) Eosinophils # (Auto) 0.1 x10^3/uL (0.0-0.7) Basophils # (Auto) 0.1 x10^3/uL (0.0-0.2) Sodium Level 141 mmol/L (136-145) Potassium Level 4.3 mmol/L (3.5-5.1) Chloride Level 104 mmol/L (98-107) Carbon Dioxide Level 25 mmol/L (21-32) Anion Gap 12 (6-14) Blood Urea Nitrogen 16 mg/dL (8-26) Creatinine 1.6 mg/dL (0.7-1.3) H Estimated GFR (Cockcroft-Gault) 62.6 BUN/Creatinine Ratio 10 (6-20) Glucose Level 95 mg/dL (70-99) Calcium Level 9.7 mg/dL (8.5-10.1) Total Bilirubin 0.6 mg/dL (0.2-1.0) Aspartate Amino Transferase (AST) 27 U/L (15-37) Alanine Aminotransferase (ALT) 21 U/L (16-63) Alkaline Phosphatase 131 U/L (46-116) H Total Protein 8.0 g/dL (6.4-8.2) Albumin 4.1 g/dL (3.4-5.0) Albumin/Globulin Ratio 1.1 (1.0-1.7) Lipase 182 U/L (73-393) Ethyl Alcohol Level < 10 mg/dL (0-10) Urine Collection Type Unknown Urine Color Yellow Urine Clarity Clear Urine pH 6.0 Urine Specific [place] >=1.030 Urine Protein 30 mg/dL (NEG-TRACE) Urine Glucose (UA) Negative mg/dL (NEG) Urine Ketones (Stick) 15 mg/dL (NEG) Urine Blood Negative (NEG) Urine Nitrite Negative (NEG) Urine Bilirubin Negative (NEG) Urine Urobilinogen Dipstick 0.2 mg/dL (0.2 mg/dL) Urine Leukocyte Esterase Negative (NEG) Urine RBC 0 /HPF (0-2) Urine WBC 1-4 /HPF (0-4) Urine Squamous Epithelial Cells Few /LPF Urine Bacteria 0 /HPF (0-FEW) Urine Mucus Slight /LPF Urine Opiates Screen Pos (NEG) Urine Methadone Screen Neg (NEG) Urine Barbiturates Neg (NEG) Urine Phencyclidine Screen Neg (NEG) Urine Amphetamine/Methamphetamine Neg (NEG) Urine Benzodiazepines Screen Neg (NEG) Urine Cocaine Screen Neg (NEG) Urine Cannabinoids Screen Pos (NEG) Urine Ethyl Alcohol Neg (NEG) Laboratory Tests 09/29/19 15:56 Laboratory Tests 09/29/19 15:56 EKG EKG [] Radiology/Procedures Radiology/Procedures [] Course & Med Decision Making Course & Med Decision Making Pertinent Labs and Imaging studies reviewed. (See chart for details) This is a 29-year-old male patient with history of kidney disease presenting today complaining of nausea vomiting and diarrhea that began at noon today. CBC with normal WBC, CMP with creatinine of 1.6, BUN is normal. Creatinine is around patient's baseline. Patient was given IV fluids, Zofran, symptoms of subsided. Discharged to home. Follow-up with PCP in the course of next week. Dragon Disclaimer Dragon Disclaimer This electronic medical record was generated, in whole or in part, using a voice recognition dictation system. Departure Departure Impression: Primary Impression: Nausea and vomiting Additional Impressions: Diarrhea Acute on chronic renal failure Dehydration Disposition: 01 HOME, SELF-CARE Condition: STABLE Referrals: NO PCP (PCP) follow up with your doctor in 1 week Patient Instructions: Diarrhea, [id number], Kidney Failure, Nausea and Vomiting, [id number] Additional Instructions: You were seen the emergency room for nausea vomiting and diarrhea. Take the pr escribed nausea medicine as needed. Follow-up with your own doctor next week. Scripts Ondansetron (ONDANSETRON ODT) 4 Mg Tab.rapdis 1 TAB PO PRN Q6-8HRS, #16 TAB Prov: RACHAEL SIMON TELEPHONE DIRECTORY DISTRIBUTOR DRIVER 09/29/19 Problem Qualifiers Primary Impression: Nausea and vomiting Vomiting type: unspecified Vomiting Intractability: non-intractable Qualified Codes: R11.2 - Nausea with vomiting, unspecified Additional Impressions: Diarrhea Diarrhea type: unspecified type Qualified Codes: R19.7 - Diarrhea, unspec ified Acute on chronic renal failure Acute renal failure type: unspecified Chronic kidney disease stage: unspecified stage Qualified Codes: N17.9 - Acute kidney failure, unspecified; N18.9 - Chronic kidney disease, unspecified RACHAEL SIMNO TELEPHONE DIRECTORY DISTRIBUTOR DRIVER Sep 29, 2019 18:40
[2019-09-29 18:51] VITALS: BP 160/107
== END 2019-09-29 18:46 | disposition home or self-care (01) ==
LOC: ER 15:25
DX: R11.2 Nausea with vomiting, unspecified (principal); R19.7 Diarrhea, unspecified; N18.9 Chronic kidney disease, unspecified; E86.0 Dehydration; R10.32 Left lower quadrant pain; Q86.0 Fetal alcohol syndrome (dysmorphic); R11.15 Cyclical vomiting syndrome unrelated to migraine; F12.90 Cannabis use, unspecified, uncomplicated; Z98.890 Other specified postprocedural states; Z79.899 Other long term (current) drug therapy
CPT/HCPCS: 36415; 80053; 80307; 81001; 83690; 85025; 96361; 96374; 96375; 99284; G0480; J0780; J2270; J2405; J7030

== ENCOUNTER 2019-11-03 12:52 | Emergency (ER) | payer SELFPAY ==
[~2019-11-03] VITALS: Ht 180.3 cm; Wt 61.3 kg
[2019-11-03] MEDS ORDERED: IV NORMAL SALINE 1000ML BAG 1,000 ML IV SCH (13:16)
--- NOTE | 2019-11-03 13:22 | PHYS DOC ---
Past Medical History Past Medical History: Renal Disease, Other Additional Past Medical Histor: ALCOHOL SYNDROME, cystic kidneys, CYCLIC VOMITING SYNDROME Past Surgical History: Other Additional Past Surgical Histo: LEFT NEPHRECTOMY 2017 Smoking Status: Current Every Day Smoker Alcohol Use: None Drug Use: Marijuana Adult General Chief Complaint Chief Complaint: NAUSEA/VOMITING/DIARRHA HPI HPI Patient is a 29 year old male with history of alcohol syndrome, cystic kidneys and having only 1 kidney, cyclic vomiting syndrome who presents with complaining of nausea and vomiting. Patient complaining of frequent episodes of nonbloody vomiting for the last 3 days and states he has had vomiting more than 9 or 10 times a day with 2 or 3 episodes of diarrhea and generalized abdominal cramping pain and rated his pain 10/10. Patient complaining of decrease of urine output and generalized weakness. Patient has had frequent emergency room visit with complaining of nausea and vomiting. Patient smoked marijuana and denies using alcohol and other drugs. Most of history was taking from patient's sister. Review of Systems Review of Systems Constitutional: Denies fever or chills [] Eyes: Denies change in visual acuity, redness, or eye pain [] HENT: Denies nasal congestion or sore throat [] Respiratory: Denies cough or shortness of breath [] Cardiovascular: No additional information not addressed in HPI [] GI: Reports abdominal pain, nausea, vomiting, diarrhea [] : Denies dysuria or hematuria [] Musculoskeletal: Denies back pain or joint pain [] Integument: Denies rash or skin lesions [] Neurologic: Denies headache, focal weakness or sensory changes [] Endocrine: Denies polyuria or polydipsia [] All other systems were reviewed and found to be within normal limits, except as documented in this note. Current Medications Current Medications Current Medications Medications (Trade) Dose Ordered Sig/Joel Start Time Stop Time Status Last Admin Dose Admin Diphenhydramine HCl (Benadryl) 50 mg 1X ONCE 11/03/19 13:30 11/03/19 13:31 DC 11/03/19 13:30 50 MG Fentanyl Citrate (Fentanyl 2ml Vial) 50 mcg 1X ONCE 11/03/19 13:30 11/03/19 13:31 DC 11/03/19 13:30 50 MCG Ondansetron HCl (Zofran) 4 mg 1X ONCE 11/03/19 13:30 11/03/19 13:31 DC 11/03/19 13:30 4 MG Sodium Chloride 1,000 ml @ 1,000 mls/hr Q1H 11/03/19 13:16 11/03/19 14:15 DC 11/03/19 13:16 1,000 MLS/HR Allergies Allergies Allergies Coded Allergies Type Severity Reaction Last Updated Verified No Known Drug Allergies 03/18/16 No Physical Exam Physical Exam Constitutional: Well developed, well nourished, moderate distress, non-toxic appearance. [] HENT: Normocephalic, atraumatic, dry oral mucosa. Eyes: PERRLA, EOMI, conjunctiva normal, no discharge. [] Neck: Normal range of motion, no tenderness, supple, no stridor. [] Cardiovascular:Heart rate regular rhythm, no murmur [] Lungs & Thorax: Bilateral breath sounds clear to auscultation [] Abdomen: Bowel sounds normal, soft, generalized guarding with tenderness, no masses, no pulsatile masses. [] Skin: Warm, dry, no erythema, no rash. [] Back: No tenderness, no CVA tenderness. [] Extremities: No tenderness, no cyanosis, no clubbing, ROM intact, no edema. [] Neurologic: Alert and oriented X 3, no focal deficits noted. [] Psychologic: Affect anxious, mood normal. [] Current Patient Data Vital Signs Vital Signs Date Time Temp Pulse Resp B/P (MAP) Pulse Ox O2 Delivery O2 Flow Rate FiO2 11/03/19 13:59 54 105/74 (84) 98 Room Air 11/03/19 13:30 15 11/03/19 13:00 97.8 97.8 Lab Values Laboratory Tests Test 11/03/19 13:05 White Blood Count 6.0 x10^3/uL (4.0-11.0) Red Blood Count 5.30 x10^6/uL (4.30-5.70) Hemoglobin 15.4 g/dL (13.0-17.5) Hematocrit 46.1 % (39.0-53.0) Mean Corpuscular Volume 87 fL (79-100) Mean Corpuscular Hemoglobin 29 pg (25-35) Mean Corpuscular Hemoglobin Concent 33 g/dL (31-37) Red Cell Distribution Width 13.3 % (11.5-14.5) Platelet Count 288 x10^3/uL (140-400) Neutrophils (%) (Auto) 75 % (31-73) H Lymphocytes (%) (Auto) 19 % (24-48) L Monocytes (%) (Auto) 5 % (0-9) Eosinophils (%) (Auto) 0 % (0-3) Basophils (%) (Auto) 1 % (0-3) Neutrophils # (Auto) 4.5 x10^3/uL (1.8-7.7) Lymphocytes # (Auto) 1.1 x10^3/uL (1.0-4.8) Monocytes # (Auto) 0.3 x10^3/uL (0.0-1.1) Eosinophils # (Auto) 0.0 x10^3/uL (0.0-0.7) Basophils # (Auto) 0.0 x10^3/uL (0.0-0.2) Prothrombin Time 13.3 SEC (11.7-14.0) Prothrombin Time INR 1.1 (0.8-1.1) Sodium Level 140 mmol/L (136-145) Potassium Level 4.1 mmol/L (3.5-5.1) Chloride Level 102 mmol/L (98-107) Carbon Dioxide Level 24 mmol/L (21-32) Anion Gap 14 (6-14) Blood Urea Nitrogen 19 mg/dL (8-26) Creatinine 1.8 mg/dL (0.7-1.3) H Estimated GFR (Cockcroft-Gault) 54.6 BUN/Creatinine Ratio 11 (6-20) Glucose Level 115 mg/dL (70-99) H Calcium Level 9.8 mg/dL (8.5-10.1) Total Bilirubin 1.0 mg/dL (0.2-1.0) Aspartate Amino Transferase (AST) 17 U/L (15-37) Alanine Aminotransferase (ALT) 21 U/L (16-63) Alkaline Phosphatase 141 U/L (46-116) H Creatine Kinase 196 U/L (39-308) Total Protein 8.5 g/dL (6.4-8.2) H Albumin 4.6 g/dL (3.4-5.0) Albumin/Globulin Ratio 1.2 (1.0-1.7) Lipase 87 U/L (73-393) Laboratory Tests 11/03/19 13:05 Laboratory Tests 11/03/19 13:05 EKG EKG [] Radiology/Procedures Radiology/Procedures [] Course & Med Decision Making Course & Med Decision Making Pertinent Labs and Imaging studies reviewed. (See chart for details) [] Dragon Disclaimer Dragon Disclaimer This electronic medical record was generated, in whole or in part, using a voice recognition dictation system. Departure Departure Impression: Primary Impression: Cyclic vomiting syndrome Additional Impressions: Chronic renal insufficiency Anxiety Disposition: HOME, SELF-CARE (At 1503) Condition: IMPROVED Referrals: NO PCP (PCP) Patient Instructions: Anxiety and Panic Attacks, Chronic Renal Insufficiency, Cyclic Vomiting Syndrome Additional Instructions: Drink plenty of liquids Follow-up with your primary care physician in 2-3 days Return to ER if not getting better Thank you for visiting [facility]. We appreciate you trusting us with your care. If any additional problems come up don't hesitate to return to visit us. Please follow up with your primary care provider so they can plan additional care if needed and know about the problem that you had. If symptoms worsen come back to the Emergency Department. Any concerning symptoms that start such as chest pain, shortness of air, weakness or numbness on one side of the body, running high fevers or any other concerning symptoms return to the ER. Scripts Metoclopramide Hcl (REGLAN) 10 Mg Tablet 1 TAB PO QID for 30 Days, #20 TAB 0 Refills before food and bedtime Prov: CARO WELCH MD 11/03/19 Problem Qualifiers Additional Impressions: Chronic renal insufficiency Chronic kidney disease stage: unspecified stage Qualified Codes: N18.9 - Chronic kidney disease, unspecified CARO WELCH MD Nov 03, 2019 13:22
[2019-11-03] MEDS ORDERED: ONDANSETRON PF 4 MG/2 ML VIAL. IV ONE (13:30)
[2019-11-03] MEDS ORDERED: fentaNYL PF VIAL 100 MCG/2 ML VIAL IVP ONE (13:30)
[2019-11-03] MEDS ORDERED: diphenhydrAMINE 50 MG/ML VIAL IVP ONE (13:30)
[2019-11-03 13:36] LABS: BASO % 1 % (0-3); EOS % 0 % (0-3); HEMATOCRIT 46.1 % (39.0-53.0); HEMOGLOBIN 15.4 g/dL (13.0-17.5); LYMPH # 1.1 x10^3/uL (1.0-4.8); LYMPH % 19 % (24-48); MEAN CORPUSCULAR HEMOGLOBIN 29 pg (25-35); MEAN CORPUSCULAR HGB CONC 33 g/dL (31-37); MEAN CORPUSCULAR VOLUME 87 fL (79-100); MONO # 0.3 x10^3/uL (0.0-1.1); MONO % 5 % (0-9); NEUT # 4.5 x10^3/uL (1.8-7.7); NEUT % 75 % (31-73); PLATELET COUNT 288 x10^3/uL (140-400); RED CELL DISTRIBUTION WIDTH 13.3 % (11.5-14.5)
[2019-11-03 13:46] LABS: PROTHROMBIN TIME PATIENT 13.3 SEC (11.7-14.0)
[2019-11-03 13:56] LABS: ALBUMIN 4.6 g/dL (3.4-5.0); ALBUMIN/GLOBULIN RATIO 1.2 (1.0-1.7); CALCIUM 9.8 mg/dL (8.5-10.1); CREATININE 1.8 mg/dL (0.7-1.3); GFR 54.6; POTASSIUM 4.1 mmol/L (3.5-5.1); TOTAL PROTEIN 8.5 g/dL (6.4-8.2)
[2019-11-03 14:59] VITALS: BP 103/67
[2019-11-03] MEDS ORDERED: METO10TA81 PO (15:05)
== END 2019-11-03 15:16 | disposition home or self-care (01) ==
LOC: ER 12:52
DX: R11.15 Cyclical vomiting syndrome unrelated to migraine (principal); N18.9 Chronic kidney disease, unspecified; F41.9 Anxiety disorder, unspecified; R19.7 Diarrhea, unspecified; R10.84 Generalized abdominal pain; F12.90 Cannabis use, unspecified, uncomplicated; F17.200 Nicotine dependence, unspecified, uncomplicated; Z98.890 Other specified postprocedural states; Z79.899 Other long term (current) drug therapy
CPT/HCPCS: 36415; 80053; 82550; 83690; 85025; 85610; 96361; 96374; 96375; 99284; J1200; J2405; J3010; J7030

== ENCOUNTER 2019-12-16 14:41 | Emergency (ER) | payer SELFPAY ==
[~2019-12-16] VITALS: Ht 182.9 cm; Wt 56.7 kg
[~2019-12-16 14:41] MED LIST changes: +METO10TA81 PO
[2019-12-16] MEDS ORDERED: ONDANSETRON PF 4 MG/2 ML VIAL. ONE (14:52)
[2019-12-16] MEDS ORDERED: IV NORMAL SALINE 1000ML BAG 1,000 ML IV ONE (15:00)
[2019-12-16 15:16] LABS: BASO % 1 % (0-3); EOS % 0 % (0-3); HEMATOCRIT 44.2 % (39.0-53.0); HEMOGLOBIN 14.8 g/dL (13.0-17.5); LYMPH # 1.4 x10^3/uL (1.0-4.8); LYMPH % 18 % (24-48); MEAN CORPUSCULAR HEMOGLOBIN 29 pg (25-35); MEAN CORPUSCULAR HGB CONC 34 g/dL (31-37); MEAN CORPUSCULAR VOLUME 88 fL (79-100); MONO # 0.5 x10^3/uL (0.0-1.1); MONO % 6 % (0-9); NEUT # 5.8 x10^3/uL (1.8-7.7); NEUT % 75 % (31-73); PLATELET COUNT 306 x10^3/uL (140-400); RED BLOOD COUNT 5.04 x10^6/uL (4.30-5.70); RED CELL DISTRIBUTION WIDTH 13.7 % (11.5-14.5); WHITE BLOOD COUNT 7.7 x10^3/uL (4.0-11.0)
[2019-12-16 15:21] LABS: CALCIUM 9.7 mg/dL (8.5-10.1); CREATININE 1.7 mg/dL (0.7-1.3); GFR 58.4; POTASSIUM 4.1 mmol/L (3.5-5.1)
[2019-12-16 15:27] LABS: ALBUMIN 4.5 g/dL (3.4-5.0); ALBUMIN/GLOBULIN RATIO 1.3 (1.0-1.7); TOTAL BILIRUBIN 0.8 mg/dL (0.2-1.0); TOTAL PROTEIN 7.9 g/dL (6.4-8.2)
[2019-12-16] MEDS ORDERED: FAMOTIDINE 20 MG/2 ML VIAL IVP ONE (15:30)
[2019-12-16] MEDS ORDERED: fentaNYL PF VIAL 100 MCG/2 ML VIAL IV ONE (15:30)
[2019-12-16] MEDS ORDERED: PROCHLORPERAZINE 10 MG/2 ML VIAL. IV ONE (15:30)
[2019-12-16 15:40] LABS: MAGNESIUM 1.9 mg/dL (1.8-2.4)
--- NOTE | 2019-12-16 16:00 | PHYS DOC ---
Past Medical History Past Medical History: Renal Disease, Other Additional Past Medical Histor: ALCOHOL SYNDROME, cystic kidneys, CYCLIC VOMITING SYNDROME Past Surgical History: Other Additional Past Surgical Histo: LEFT NEPHRECTOMY 2017 Smoking Status: Current Every Day Smoker Alcohol Use: None Drug Use: Marijuana General Adult EDM: Chief Complaint: ABDOMINAL PAIN HPI: HPI: Patient is a 29 year old AA male who presents to the ER with complaints of nausea, vomiting, and diffuse abdominal pain since yesterday. Pt has a hx of alcohol syndrome, cystic kidneys, and states he only has one kidney after the other was removed due to a cyst. Pt has presented to the ER several times recently for cyclic vomiting syndrome. Patient denies any blood in his vomit, fever, cough, diarrhea, decreased urine output, shortness of breath, chest pain, or palpitations. He states that he has vomited at least 12 times in the last 24 hours. He currently rates his abdominal pain a 10/10 on the pain scale he denies any alleviating factors. Review of Systems: Review of Systems: Constitutional: Denies fever or chills. [] Eyes: Denies change in visual acuity. [] HENT: Denies nasal congestion or sore throat. [] Respiratory: Denies cough or shortness of breath. [] Cardiovascular: Denies chest pain or edema. [] GI: see HPI : Denies dysuria. [] Musculoskeletal: Denies back pain or joint pain, reports generalized myalgias. [] Integument: Denies rash. [] Neurologic: Denies headache, focal weakness or sensory changes. [] Endocrine: Denies polyuria or polydipsia. [] Lymphatic: Denies swollen glands. [] Psychiatric: Denies depression or anxiety. [] Heart Score: Risk Factors: Risk Factors: DM, Current or recent (<one month) smoker, HTN, HLP, family history of CAD, obesity. Risk Scores: Score 0 - 3: 2.5% MACE over next 6 weeks - Discharge Home Score 4 - 6: 20.3% MACE over next 6 weeks - Admit for Clinical Observation Score 7 - 10: 72.7% MACE over next 6 weeks - Early Invasive Strategies Current Medications: Current Medications Medications (Trade) Dose Ordered Sig/Joel Start Time Stop Time Status Last Admin Dose Admin Famotidine (Pepcid Vial) 20 mg 1X ONCE 4/18/20 15:30 12/16/19 15:31 DC 12/16/19 15:36 20 MG Fentanyl Citrate (Fentanyl 2ml Vial) 50 mcg 1X ONCE 12/16/19 15:30 12/16/19 15:31 DC 12/16/19 15:39 50 MCG Ondansetron HCl (Zofran) 4 mg STK-MED ONCE 12/16/19 14:52 12/16/19 14:52 DC Prochlorperazine Edisylate (Compazine) 10 mg 1X ONCE 12/16/19 15:30 12/16/19 15:31 DC 12/16/19 15:34 10 MG Sodium Chloride 1,000 ml @ 1,000 mls/hr 1X ONCE 12/16/19 15:00 12/16/19 15:59 12/16/19 15:35 1,000 MLS/HR Allergies: Allergies: Allergies Coded Allergies Type Severity Reaction Last Updated Verified No Known Drug Allergies 03/18/16 No Physical Exam: PE: Constitutional: Well developed, well nourished, no acute distress, non-toxic a ppearance. [] HENT: Normocephalic, atraumatic, bilateral external ears normal, oropharynx dry, nose normal. [] Eyes: PERRLA, EOMI, conjunctiva normal, no discharge. [] Neck: Normal range of motion, no stridor. [] Cardiovascular:Heart rate regular rhythm, no murmur [] Lungs & Thorax: Bilateral breath sounds clear to auscultation, regular rate, no retractions, no wheezing [] Abdomen: Bowel sounds normal, soft, diffuse TTP, no rebound tenderness, no masses, no pulsatile masses. [] Skin: Warm, dry, no erythema, no rash. [] Back: No tenderness Extremities: No cyanosis, no clubbing, ROM intact, no edema. [] Neurologic: Alert and oriented X 3, no focal deficits noted. [] Psychologic: Affect normal, judgement normal, mood normal. [] Current Patient Data: Labs: Laboratory Tests Test 12/16/19 14:49 White Blood Count 7.7 x10^3/uL (4.0-11.0) Red Blood Count 5.04 x10^6/uL (4.30-5.70) Hemoglobin 14.8 g/dL (13.0-17.5) Hematocrit 44.2 % (39.0-53.0) Mean Corpuscular Volume 88 fL (79-100) Mean Corpuscular Hemoglobin 29 pg (25-35) Mean Corpuscular Hemoglobin Concent 34 g/dL (31-37) Red Cell Distribution Width 13.7 % (11.5-14.5) Platelet Count 306 x10^3/uL (140-400) Neutrophils (%) (Auto) 75 % (31-73) H Lymphocytes (%) (Auto) 18 % (24-48) L Monocytes (%) (Auto) 6 % (0-9) Eosinophils (%) (Auto) 0 % (0-3) Basophils (%) (Auto) 1 % (0-3) Neutrophils # (Auto) 5.8 x10^3/uL (1.8-7.7) Lymphocytes # (Auto) 1.4 x10^3/uL (1.0-4.8) Monocytes # (Auto) 0.5 x10^3/uL (0.0-1.1) Eosinophils # (Auto) 0.0 x10^3/uL (0.0-0.7) Basophils # (Auto) 0.0 x10^3/uL (0.0-0.2) Sodium Level 142 mmol/L (136-145) Potassium Level 4.1 mmol/L (3.5-5.1) Chloride Level 103 mmol/L (98-107) Carbon Dioxide Level 26 mmol/L (21-32) Anion Gap 13 (6-14) Blood Urea Nitrogen 11 mg/dL (8-26) Creatinine 1.7 mg/dL (0.7-1.3) H Estimated GFR (Cockcroft-Gault) 58.4 BUN/Creatinine Ratio 6 (6-20) Glucose Level 113 mg/dL (70-99) H Calcium Level 9.7 mg/dL (8.5-10.1) Magnesium Level 1.9 mg/dL (1.8-2.4) Total Bilirubin 0.8 mg/dL (0.2-1.0) Aspartate Amino Transferase (AST) 17 U/L (15-37) Alanine Aminotransferase (ALT) 21 U/L (16-63) Alkaline Phosphatase 117 U/L (46-116) H Total Protein 7.9 g/dL (6.4-8.2) Albumin 4.5 g/dL (3.4-5.0) Albumin/Globulin Ratio 1.3 (1.0-1.7) Lipase 456 U/L (73-393) H Laboratory Tests 12/16/19 14:49 Laboratory Tests 12/16/19 14:49 Vital Signs: Vital Signs Date Time Temp Pulse Resp B/P (MAP) Pulse Ox O2 Delivery O2 Flow Rate FiO2 12/16/19 15:39 20 12/16/19 14:45 98.0 64 172/103 (126) 100 Room Air 98.0 EKG: EKG: [] Radiology/Procedures: Radiology/Procedures: [] Course & Med Decision Making: Course & Med Decision Making Pertinent Labs and Imaging studies reviewed. (See chart for details) Patient is a 29-year-old male who presents to the emergency department with complaints of diffuse abdominal pain and intractable nausea and vomiting since yesterday. His CBC was unremarkable, CMP revealed a creatinine of 1.7, glucose of 113, alk phos of 117, lipase of 456; UA was unremarkable; UDS was positive for cannabinoids. The patient was given a liter of normal saline, 20 mg of famotidine, 4 mg of Zofran, and 10 mg of Compazine IV. After these medications he was able to rest comfortably in the emergency department. Vital signs are stable. Prescription written for Phenergan suppositories to take as needed for nausea and vomiting. Patient encouraged to stop using cannabis. He was encouraged to follow-up with his primary care doctor this week, return to the ER if fever develops or symptoms worsen. Patient verbalized an understanding of home care, medications, follow-up, and return to ED instructions and was in agreement with the plan of care. [] Dragon Disclaimer: Dragon Disclaimer: This electronic medical record was generated, in whole or in part, using a voice recognition dictation system. Departure Departure Impression: Primary Impression: Cannabinoid hyperemesis syndrome Additional Impression: Nausea and vomiting Qualified Codes: R11.2 - Nausea with vomiting, unspecified Disposition: 01 HOME, SELF-CARE Condition: STABLE Referrals: NO PCP (PCP) Patient Instructions: Nausea and Vomiting, [id number] Additional Instructions: Fill the prescription and take as needed for nausea and vomiting. STOP USING MARIJUANA. Follow up with your primary care doctor next week, return to the ER if symptoms worsen or you develop a fever. Scripts Promethazine Hcl (PROMETHAZINE HCL) 25 Mg Supp.rect 25 MG RC Q6H PRN for NAUSEA/VOMITING for 3 Days, #10 SUPP.RECT 0 Refills Prov: VANDANA RESTREPO APRN 12/16/19 VANDANA RESTREPO APRN Dec 16, 2019 15:59
[2019-12-16 17:14] LABS: BILIRUBIN,URINE NEGATIVE (NEG); CLARITY,URINE CLEAR; COLOR,URINE YELLOW; NITRITE,URINE NEGATIVE (NEG); PH,URINE 8.5 (<5.0-8.0); PROTEIN,URINE 100 mg/dL (NEG-TRACE); UROBILINOGEN,URINE 0.2 mg/dL (0.2 mg/dL)
[2019-12-16 17:20] LABS: BARBITURATES NEG (NEG); BENZODIAZEPINES NEG (NEG); CANNABINOIDS POS (NEG); COCAINE NEG (NEG); METHADONE NEG (NEG); OPIATES NEG (NEG); PHENCYCLIDINE NEG (NEG)
[2019-12-16 17:24] LABS: AMPHETAMINE/METHAMPHETAMINE NEG (NEG); BACTERIA,URINE 0 /HPF (0-FEW); RBC,URINE 0 /HPF (0-2); SQUAMOUS EPITHELIAL CELL,UR FEW /LPF
[2019-12-16 17:25] LABS: AMORPHOUS SEDIMENT,UR PRESENT /HPF
[2019-12-16] MEDS ORDERED: PROM25SU33 RC (17:30)
[2019-12-16 17:47] VITALS: BP 120/78
== END 2019-12-16 17:55 | disposition home or self-care (01) ==
LOC: ER 14:41
DX: F12.188 Cannabis abuse with other cannabis-induced disorder (principal); R11.2 Nausea with vomiting, unspecified; R10.84 Generalized abdominal pain; F17.200 Nicotine dependence, unspecified, uncomplicated
CPT/HCPCS: 36415; 80053; 80307; 81001; 83690; 83735; 85025; 87086; 96361; 96374; 96375; 99285; J0780; J3010; J3490; J7030

== ENCOUNTER 2020-01-23 03:01 | Emergency (ER) | payer SELFPAY ==
[~2020-01-23] VITALS: Ht 182.9 cm; Wt 61.3 kg
[~2020-01-23 03:01] MED LIST changes: +PROM25SU33 RC
[2020-01-23] MEDS ORDERED: HYDROmorphone 2 MG/ML VIAL IV/SQ PRN (03:15)
--- NOTE | 2020-01-23 03:15 | PHYS DOC ---
Past Medical History Past Medical History: Renal Disease, Other Additional Past Medical Histor: ALCOHOL SYNDROME, cystic kidneys, CYCLIC VOMITING SYNDROME Past Surgical History: Other Additional Past Surgical Histo: LEFT NEPHRECTOMY 2017 Smoking Status: Current Every Day Smoker Alcohol Use: None Drug Use: Marijuana General Adult EDM: Chief Complaint: Abdominal pain and vomiting HPI: HPI: Patient is a 29 year old male who presents with complaint of abdominal pain with nausea and vomiting that started yesterday. Patient states that pain is a 9 out of 10. He states the pain is primarily in the left lower abdomen and radiates into his groin. Patient was seen at another facility a couple of days ago with vomiting and was treated for cyclic vomiting syndrome associated with marijuana use. Patient denies any fever. He denies any chest pain or shortness of breath. [] Review of Systems: Review of Systems: Constitutional: Denies fever or chills. [] Respiratory: Denies cough or shortness of breath. [] Cardiovascular: Denies chest pain or edema. [] GI: Complains of abdominal pain with nausea and vomiting. [] Neurologic: Denies headache, focal weakness or sensory changes. [] A full 10 point review of systems has been reviewed and is otherwise negative. Heart Score: Risk Factors: Risk Factors: DM, Current or recent (<one month) smoker, HTN, HLP, family history of CAD, obesity. Risk Scores: Score 0 - 3: 2.5% MACE over next 6 weeks - Discharge Home Score 4 - 6: 20.3% MACE over next 6 weeks - Admit for Clinical Observation Score 7 - 10: 72.7% MACE over next 6 weeks - Early Invasive Strategies Current Medications: Current Medications Medications (Trade) Dose Ordered Sig/Joel Start Time Stop Time Status Last Admin Dose Admin Hydromorphone HCl (Dilaudid) 1 mg PRN Q15MIN PRN 01/23/20 03:15 01/24/20 03:14 UNV Allergies: Allergies: Allergies Coded Allergies Type Severity Reaction Last Updated Verified No Known Drug Allergies 03/18/16 No Physical Exam: PE: Constitutional: Well developed, well nourished, in mild distress. [] HENT: Normocephalic, atraumatic, bilateral external ears normal, oropharynx moist, no oral exudates, nose normal. [] Eyes: PERRLA, EOMI, conjunctiva normal, no discharge. [] Neck: Normal range of motion, no tenderness, supple, no stridor. [] Cardiovascular: Regular rate and rhythm [] Lungs & Thorax: Bilateral breath sounds clear to auscultation [] Abdomen: Bowel sounds normal, soft, with left lower abdominal tenderness. [] Skin: Warm, dry, no erythema, no rash. [] Extremities: No tenderness, no cyanosis, no clubbing, ROM intact, no edema. [] Neurologic: Alert and oriented X 3, no focal deficits noted. [] EKG: EKG: [] Radiology/Procedures: Radiology/Procedures: [] Course & Med Decision Making: Course & Med Decision Making Pertinent Labs and Imaging studies reviewed. (See chart for details) [] Dragon Disclaimer: Dragon Disclaimer: This electronic medical record was generated, in whole or in part, using a voice recognition dictation system. Departure Departure Impression: Primary Impression: Cannabinoid hyperemesis syndrome Disposition: 01 HOME, SELF-CARE Condition: STABLE Referrals: NO PCP (PCP) Patient Instructions: Marijuana Abuse and Chemical Dependency, Nausea and Vomiting Scripts Ondansetron (ONDANSETRON ODT) 4 Mg Tab.rapdis 1 TAB PO PRN Q6-8HRS PRN for NAUSEA, #15 TAB Prov: FABY BE Jr. DO 01/23/20 FABY BE Jr. DO January 23, 2020 03:15
[2020-01-23 03:30] LABS: BASO # 0.1 x10^3/uL (0.0-0.2); BASO % 1 % (0-3); EOS # 0.1 x10^3/uL (0.0-0.7); EOS % 1 % (0-3); HEMATOCRIT 42.7 % (39.0-53.0); HEMOGLOBIN 14.4 g/dL (13.0-17.5); LYMPH # 2.6 x10^3/uL (1.0-4.8); LYMPH % 31 % (24-48); MEAN CORPUSCULAR HEMOGLOBIN 29 pg (25-35); MEAN CORPUSCULAR HGB CONC 34 g/dL (31-37); MEAN CORPUSCULAR VOLUME 87 fL (79-100); MONO # 0.5 x10^3/uL (0.0-1.1); MONO % 6 % (0-9); NEUT # 5.3 x10^3/uL (1.8-7.7); NEUT % 62 % (31-73); PLATELET COUNT 287 x10^3/uL (140-400); RED BLOOD COUNT 4.89 x10^6/uL (4.30-5.70); RED CELL DISTRIBUTION WIDTH 14.1 % (11.5-14.5); WHITE BLOOD COUNT 8.5 x10^3/uL (4.0-11.0)
[2020-01-23] MEDS ORDERED: IV NORMAL SALINE 1000ML BAG 1,000 ML IV SCH (03:30)
[2020-01-23] MEDS ORDERED: METOCLOPRAMIDE HCL 10 MG/2 ML VIAL. IVP ONE (03:30)
[2020-01-23] MEDS ORDERED: ONDANSETRON PF 4 MG/2 ML VIAL. IVP ONE (03:30)
[2020-01-23 03:39] LABS: CALCIUM 9.6 mg/dL (8.5-10.1); CREATININE 1.9 mg/dL (0.7-1.3); GFR 51.3; POTASSIUM 4.1 mmol/L (3.5-5.1)
[2020-01-23 03:45] LABS: ALBUMIN 4.4 g/dL (3.4-5.0); ALBUMIN/GLOBULIN RATIO 1.3 (1.0-1.7); TOTAL BILIRUBIN 0.7 mg/dL (0.2-1.0); TOTAL PROTEIN 7.9 g/dL (6.4-8.2)
[2020-01-23 05:43] LABS: BILIRUBIN,URINE SMALL (NEG); CLARITY,URINE CLEAR; COLOR,URINE YELLOW; NITRITE,URINE NEGATIVE (NEG); PH,URINE 6.5 (<5.0-8.0); PROTEIN,URINE 30 mg/dL (NEG-TRACE)
[2020-01-23 05:50] LABS: BARBITURATES NEG (NEG); BENZODIAZEPINES NEG (NEG); CANNABINOIDS POS (NEG); COCAINE NEG (NEG); METHADONE NEG (NEG); OPIATES POS (NEG); PHENCYCLIDINE NEG (NEG)
[2020-01-23 05:52] LABS: AMPHETAMINE/METHAMPHETAMINE NEG (NEG)
[2020-01-23 05:58] LABS: BACTERIA,URINE FEW /HPF (0-FEW); RBC,URINE OCC /HPF (0-2); SQUAMOUS EPITHELIAL CELL,UR FEW /LPF
--- NOTE | 2020-01-23 06:03 | RAD ---
EXAM: CT ABDOMEN/PELVIS WITHOUT CONTRAST. HISTORY: Left lower quadrant pain. TECHNIQUE: Computed tomography of the abdomen and pelvis was performed without intravenous contrast. One or more of the following individualized dose reduction techniques were utilized for this examination: 1. Automated exposure control. 2. Adjustment of the mA and/or kV according to patient size. 3. Use of iterative reconstruction technique. COMPARISON: 01/17/2018. FINDINGS: Lung windows through the visualized portions of the bases reveal mild atelectasis. Bone windows reveal no suspicious lesions. The right kidney is surgically absent. The left kidney, spleen, gallbladder, pancreas and liver are unremarkable. There are no pathologically enlarged lymph nodes. The appendix is not inflamed. No inflammatory process is identified elsewhere. There is no small bowel obstruction. IMPRESSION: 1. Status post right nephrectomy. No cause for pain is identified. Electronically signed by: Adrianne Obregon MD (01/23/2020 6:01 AM) [facility]
[2020-01-23 06:05] VITALS: BP 127/84
[2020-01-23] MEDS ORDERED: ONDA4TAB12 PO (06:08)
== END 2020-01-23 06:15 | disposition home or self-care (01) ==
LOC: ER 03:01
DX: F12.188 Cannabis abuse with other cannabis-induced disorder (principal); R11.2 Nausea with vomiting, unspecified; F17.200 Nicotine dependence, unspecified, uncomplicated
CPT/HCPCS: 36415; 74176; 80053; 80307; 81001; 83690; 85025; 96361; 96374; 96375; 99285; J1170; J2405; J2765; J7030

== ENCOUNTER 2020-01-24 01:55 | Emergency (ER) | payer SELFPAY ==
[2020-01-23 06:05] VITALS: BP 127/84
[~2020-01-24] VITALS: Ht 170.2 cm; Wt 92.1 kg
== END 2020-01-24 02:27 | disposition left against medical advice (07) ==
LOC: ER 01:55
DX: R11.2 Nausea with vomiting, unspecified (principal); R19.7 Diarrhea, unspecified; Z53.21 Procedure and treatment not carried out due to patient leaving prior to being seen by health care provider

== ENCOUNTER 2020-04-28 00:54 | Emergency (ER) | payer SELFPAY ==
[~2020-04-28] VITALS: Ht 182.9 cm; Wt 54.5 kg
--- NOTE | 2020-04-28 01:19 | PHYS DOC ---
Past Medical History Past Medical History: Renal Disease, Other Additional Past Medical Histor: ALCOHOL SYNDROME, cystic kidneys, CYCLIC VOMITING SYNDROME Past Surgical History: Other Additional Past Surgical Histo: LEFT NEPHRECTOMY 2017 Smoking Status: Current Every Day Smoker Alcohol Use: None Drug Use: Marijuana General Adult EDM: Chief Complaint: NAUSEA/VOMITING/DIARRHA HPI: HPI: The history was obtained from the patient. Patient is a 30-year-old male with PMH daily marijuana usage, nephrectomy, recent ureteral stent placement who presents with a chief complaint of abdominal pain. Patient states he has had gradual onset abdominal pain beginning 12 hours ago. States the pain is over his entire abdomen worse in his umbilicus region. States the pain is aching in nature. He states it is nonradiating. He has tried Zofran at home with minimal relief. He states he was seen at outside hospital a couple of days ago for similar symptoms. He states an abdominal x-ray was performed and was unremarkable. He notes that he smokes marijuana daily and has had similar symptoms in the past. He does note dark red-colored urine over the past day. He notes multiple episodes of nonbloody nonbilious emesis today. Denies fevers. Denies syncope. States he has had a nephrectomy in 2017 secondary to renal cyst. He notes that he recently had a ureteral stent placed on the left due to kidney stone at another outside hospital proximally 1 month ago. Denies any other drug or alcohol usage. Denies any other abdominal surgeries. No other complaints. Review of Systems: Review of Systems: Constitutional: Denies fever or chills. [] Eyes: Denies change in visual acuity. [] HENT: Denies nasal congestion or sore throat. [] Respiratory: Denies cough or shortness of breath. [] Cardiovascular: Denies chest pain or edema. [] GI: Positive for abdominal pain and vomiting : Positive for hematuria Musculoskeletal: Denies back pain or joint pain. [] Integument: Denies rash. [] Neurologic: Denies headache, focal weakness or sensory changes. [] Endocrine: Denies polyuria or polydipsia. [] Lymphatic: Denies swollen glands. [] Psychiatric: Denies depression or anxiety. [] Heart Score: Risk Factors: Risk Factors: DM, Current or recent (<one month) smoker, HTN, HLP, family history of CAD, obesity. Risk Scores: Score 0 - 3: 2.5% MACE over next 6 weeks - Discharge Home Score 4 - 6: 20.3% MACE over next 6 weeks - Admit for Clinical Observation Score 7 - 10: 72.7% MACE over next 6 weeks - Early Invasive Strategies Allergies: Allergies: Allergies Coded Allergies Type Severity Reaction Last Updated Verified No Known Drug Allergies 03/18/16 No Physical Exam: PE: Constitutional: Well developed, well nourished, no acute distress, non-toxic appearance. [] HENT: Normocephalic, atraumatic, bilateral external ears normal, oropharynx moist, no oral exudates, nose normal. [] Eyes: PERRLA, EOMI, conjunctiva normal, no discharge. [] Neck: Normal range of motion, no tenderness, supple, no stridor. [] Cardiovascular:Heart rate regular rhythm, no murmur [] Lungs & Thorax: Bilateral breath sounds clear to auscultation [] Abdomen: Soft, nontender, nonacute abdomen. No involuntary guarding or rigidity noted. No acute peritonitis. Skin: Warm, dry, no erythema, no rash. [] Back: No tenderness, no CVA tenderness. [] Extremities: No tenderness, no cyanosis, no clubbing, ROM intact, no edema. [] Neurologic: Alert and oriented X 3, normal motor function, normal sensory function, no focal deficits noted. [] Psychologic: Affect normal, judgement normal, mood normal. [] Current Patient Data: Labs: Laboratory Tests Test 04/28/20 01:30 White Blood Count 7.8 x10^3/uL Red Blood Count 4.95 x10^6/uL Hemoglobin 14.5 g/dL Hematocrit 43.1 % Mean Corpuscular Volume 87 fL Mean Corpuscular Hemoglobin 29 pg Mean Corpuscular Hemoglobin Concent 34 g/dL Red Cell Distribution Width 12.9 % Platelet Count 427 x10^3/uL Neutrophils (%) (Auto) 59 % Lymphocytes (%) (Auto) 31 % Monocytes (%) (Auto) 8 % Eosinophils (%) (Auto) 1 % Basophils (%) (Auto) 1 % Neutrophils # (Auto) 4.6 x10^3/uL Lymphocytes # (Auto) 2.4 x10^3/uL Monocytes # (Auto) 0.6 x10^3/uL Eosinophils # (Auto) 0.1 x10^3/uL Basophils # (Auto) 0.1 x10^3/uL Sodium Level 139 mmol/L Potassium Level 4.0 mmol/L Chloride Level 99 mmol/L Carbon Dioxide Level 27 mmol/L Anion Gap 13 Blood Urea Nitrogen 18 mg/dL Creatinine 1.9 mg/dL Estimated GFR (Cockcroft-Gault) 51.0 BUN/Creatinine Ratio 9 Glucose Level 95 mg/dL Calcium Level 9.7 mg/dL Total Bilirubin 0.8 mg/dL Aspartate Amino Transf (AST/SGOT) 41 U/L Alanine Aminotransferase (ALT/SGPT) 72 U/L Alkaline Phosphatase 138 U/L Total Protein 9.1 g/dL Albumin 3.6 g/dL Albumin/Globulin Ratio 0.7 Lipase 60 U/L Current Medications Medications (Trade) Dose Ordered Sig/Joel Route PRN Reason Start Time Stop Time Status Last Admin Dose Admin Haloperidol Lactate (Haldol Inj) 5 mg 1X ONCE IVP 04/28/20 01:30 04/28/20 01:31 DC 04/28/20 01:38 Morphine Sulfate (Morphine Sulfate) 4 mg 1X ONCE IV 04/28/20 01:30 04/28/20 01:31 DC 04/28/20 01:39 Ringer's Solution 1,000 ml @ 1,000 mls/hr 1X ONCE IV 04/28/20 02:00 04/28/20 02:59 04/28/20 02:23 EKG: EKG: [] Radiology/Procedures: Radiology/Procedures: [][facility] [address] [place] [address] IMAGING REPORT Signed PATIENT: LILLIAN BRANCH ACCOUNT: [id number] : 1990 LOCATION: ER AGE: 30 SEX: M EXAM STATUS: REG ER ORD. PHYSICIAN: TYLER LAMBERT DO REASON: diffuse abd pain.L sided urteral stent placed recently. h/o nephrectomy 17 PROCEDURE: CT ABDOMEN PELVIS WO CONTRAST INDICATION: Reason: diffuse abd pain.L sided urteral stent placed recently. h/o nephrectomy 17' / Spl. Instructions: / History: COMPARISON: January 23, 2020 TECHNIQUE: Axial CT images obtained through the abdomen and pelvis without contrast. One or more of the following individualized dose reduction techniques were utilized for this examination: 1. Automated exposure control; 2. Adjustment of the mA and/or kV according to patient size; 3. Use of iterative reconstruction technique. FINDINGS: Abdominal aorta is partially seen secondary to lack of contrast and lack of adjacent fat. No intrahepatic bile duct dilation. Subcentimeter low-density lesion within the left lobe the liver which is too small to characterize but a common finding. Pancreas not well evaluated on noncontrast exam. Spleen is not enlarged. Right nephrectomy changes. Left-sided nephroureteral stent. Nonobstructive left renal stone. 2 mm calcification at urinary bladder. Mild distention of the left extrarenal pelvis. Moderate stool in the colon. There is a couple mildly prominent loops of small bowel without a high-grade transition point. A small portion of the appendix is seen and does not appear dilated in visualized portion. IMPRESSION: * Nonobstructive left renal stone with mild prominence of left extrarenal pelvis and nephroureteral stent. * There is a small calcification within the urinary bladder which could be from a tiny bladder stone. Electronically signed by: Jacky Fleming MD (04/28/2020 2:38 AM) [id number] DICTATED and SIGNED BY: JACKY FLEMING MD DATE: 04/28/20 0238 Course & Med Decision Making: Course & Med Decision Making Pertinent Labs and Imaging studies reviewed. (See chart for details) Patient is a 30-year-old male who presents with chief complaint of gradual onset abdominal pain associated with vomiting. Initial vital signs unremarkable. Exam noted above. Basic labs were obtained. No leukocytosis present. Kidney function appears consistent with baseline. CT abdomen pelvis without contrast was obtained given the patient's history of unilateral kidney. This reveals no acute pathology. Nonobstructing left renal stone noted. Status post renal stent placement. Appendix visualized without inflammatory changes. Patient's symptoms were treated in the emergency department. On repeat examination he is sleeping comfortably. We did asked the patient multiple times to provide urine sample to provide complete evaluation for the patient. He is refusing to provide a sample at this time. I did explain to the patient that this limits our ability to completely evaluate for his abdominal pain and vomiting. Specifically I noted that this could limit our ability to identify infection. He did express understanding. He does appear to have capacity this time. He is alert and oriented x3. He has an understanding of his basic healthcare needs and potential consequences at this time. On repeat examination his abdomen remains benign. Vital signs been stable. He has tolerated p.o. His symptoms may be related to cyclical vomiting syndrome as he does have a history of this diagnoses and does smoke marijuana daily. Overall he is appropriate for discharge home. Return precautions were discussed and understood. He states he does have Zofran prescription at home. Instructed to follow-up with his primary care physician in the next 2 to 3 days. Stable for discharge. Dragon Disclaimer: Dragon Disclaimer: This electronic medical record was generated, in whole or in part, using a voice recognition dictation system. Departure Departure Impression: Primary Impression: Abdominal pain Qualified Codes: R10.9 - Unspecified abdominal pain Additional Impressions: Nausea & vomiting Qualified Codes: R11.2 - Nausea with vomiting, unspecified Marijuana abuse Disposition: HOME, SELF-CARE Condition: STABLE Referrals: NO PCP (PCP) Patient Instructions: Cyclic Vomiting Syndrome Additional Instructions: Discharge Abdominal Pain Re-Check Precautions: I'm unsure of the specific cause of your abdominal pain. However, at this point I feel that you are low risk for a life threatening emergency and that discharge from the Emergency Department is safe. There is a very small possibility that you are just too early in your clinical course for our physical exam/labs/imaging to ascertain whether or not you have an emergent condition that could potentially cause permanent disability or be life threatening. As such, it is very important that you follow up with your primary doctor or return to the Emergency Department in 12-24 hours for re-assessment and further evaluation if clinically indicated. If you develop new or worsening symptoms then you should return to the Emergency Department immediately. Home Care Instructions: Abdominal Pain Many things may cause abdominal pain. Your ER visit might not show the exact reason you are having pain. In some cases, additional time is needed to determine if the cause is serious. Therefore you may be told to go home and watch for any changes or worsening in your condition. Before that, we may not know if you need more testing, or if hospitalization or surgery is necessary. If its not something serious, the pain may go away without treatment or get better with simple things like avoiding certain foods or medications. In the ER, your doctor asks you questions, examines you and in some cases, may order tests. These help doctors decide if the pain is from something serious. Tests are not always done and may not provide a definite answer. There can still be a problem, even with normal test results. Abdominal pain may be caused by something serious (like appendicitis), which is not obvious right away. Because of this, another checkup is needed to make sure you are OK. It is VERY IMPORTANT to follow up for a repeat exam, especially if you have any symptoms that are not going away or are getting worse. We recommend that you RETURN TO THE EMERGENCY ROOM IN 8-12 HOURS to be rechecked. If you cannot, you may follow up with your primary care doctor or clinic. It is important that you follow all of the instructions below. RETURN TO THE EMERGENCY ROOM IMMEDIATELY IF: The pain does not go away or gets worse. You have a fever. You keep throwing up and cannot keep anything down. You pass bloody or black stools. You develop new symptoms. HOME CARE INSTRUCTIONS Come back to the ER (or see your doctor) in 8-12 hours. DO NOT take laxatives unless directed by your doctor. Avoid the use of alcohol Take pain medicine only as directed by your doctor. Only take [id number] or prescription medicine as directed by your doctor. Try a clear liquid diet (broth, tea, jello, water) for the next 12-24 hours. Slowly move to a bland diet as tolerated. Do not eat greasy, fatty or spicy foods. Once you start getting better, go back to a normal, healthy diet, slowly over a few days. DISCHARGE PT INSTRUCTIONS: YOU HAVE BEEN EVALUATED FOR ABDOMINAL PAIN. HOWEVER, WE ARE UNABLE TO PROVIDE A DEFINITE CAUSE OF YOUR SYMPTOMS. EVEN THOUGH YOUR TESTS MAY HAVE BEEN NORMAL, YOU STILL COULD HAVE A SERIOUS CAUSE FOR YOUR ABDOMINAL PAIN, INCLUDING APPENDICITIS. THE BEST TEST TO DETERMINE IF YOU HAVE A SERIOUS CAUSE IS RE-EXAMINATION OVER TIME. WE USED TO ADMIT PATIENTS TO THE HOSPITAL FOR THIS, BUT CAN NOW ALLOW YOU TO GO HOME, & RETURN TO OUR ER THE NEXT DAY FOR RE- EXAMINATION. THUS, WE WOULD LIKE YOU TO RETURN TO OUR ER TOMORROW FOR YOUR RE- EVALUATION. (IF YOUR SYMPTOMS HAVE GONE AWAY, THEN YOU DO NOT NEED TO RETURN.) IF YOUR SYMPTOMS GET WORSE BETWEEN NOW & THEN, YOU SHOULD RETURN IMMEDIATELY & NOT WAIT UNTIL TOMORROW. SYMPTOMS TO LOOK FOR WORSENING PAIN, HIGH FEVER, PERSISTENT VOMITING [NOT CONTROLLED BY MEDICINE], AND/OR OVERALL WORSENING OF YOUR CONDITION. Justicifation of Admission Dx: Justifications for Admission: Justification of Admission Dx: N/A TYLER LAMBERT DO Apr 28, 2020 01:19
[2020-04-28] MEDS ORDERED: HALOPERIDOL LACTATE 5 MG/ML VIAL. IVP ONE (01:30)
[2020-04-28] MEDS ORDERED: MORPHINE SULFATE 4 MG/ML VIAL. IV ONE (01:30)
[2020-04-28 01:51] LABS: BASO # 0.1 x10^3/uL (0.0-0.2); BASO % 1 % (0-3); EOS # 0.1 x10^3/uL (0.0-0.7); EOS % 1 % (0-3); HEMATOCRIT 43.1 % (39.0-53.0); HEMOGLOBIN 14.5 g/dL (13.0-17.5); LYMPH # 2.4 x10^3/uL (1.0-4.8); LYMPH % 31 % (24-48); MEAN CORPUSCULAR HEMOGLOBIN 29 pg (25-35); MEAN CORPUSCULAR HGB CONC 34 g/dL (31-37); MEAN CORPUSCULAR VOLUME 87 fL (79-100); MONO # 0.6 x10^3/uL (0.0-1.1); MONO % 8 % (0-9); NEUT # 4.6 x10^3/uL (1.8-7.7); NEUT % 59 % (31-73); PLATELET COUNT 427 x10^3/uL (140-400); RED BLOOD COUNT 4.95 x10^6/uL (4.30-5.70); RED CELL DISTRIBUTION WIDTH 12.9 % (11.5-14.5); WHITE BLOOD COUNT 7.8 x10^3/uL (4.0-11.0)
[2020-04-28] MEDS ORDERED: IV RINGERS,LACTATED 1000ML 1,000 ML IV ONE (02:00)
[2020-04-28 02:03] LABS: CALCIUM 9.7 mg/dL (8.5-10.1); CREATININE 1.9 mg/dL (0.7-1.3)
[2020-04-28 02:08] LABS: ALBUMIN 3.6 g/dL (3.4-5.0); ALBUMIN/GLOBULIN RATIO 0.7 (1.0-1.7); TOTAL BILIRUBIN 0.8 mg/dL (0.2-1.0); TOTAL PROTEIN 9.1 g/dL (6.4-8.2)
--- NOTE | 2020-04-28 02:41 | RAD ---
INDICATION: Reason: diffuse abd pain.L sided urteral stent placed recently. h/o nephrectomy 17' / Spl. Instructions: / History: COMPARISON: January 23, 2020 TECHNIQUE: Axial CT images obtained through the abdomen and pelvis without contrast. One or more of the following individualized dose reduction techniques were utilized for this examination: 1. Automated exposure control; 2. Adjustment of the mA and/or kV according to patient size; 3. Use of iterative reconstruction technique. FINDINGS: Abdominal aorta is partially seen secondary to lack of contrast and lack of adjacent fat. No intrahepatic bile duct dilation. Subcentimeter low-density lesion within the left lobe the liver which is too small to characterize but a common finding. Pancreas not well evaluated on noncontrast exam. Spleen is not enlarged. Right nephrectomy changes. Left-sided nephroureteral stent. Nonobstructive left renal stone. 2 mm calcification at urinary bladder. Mild distention of the left extrarenal pelvis. Moderate stool in the colon. There is a couple mildly prominent loops of small bowel without a high-grade transition point. A small portion of the appendix is seen and does not appear dilated in visualized portion. IMPRESSION: * Nonobstructive left renal stone with mild prominence of left extrarenal pelvis and nephroureteral stent. * There is a small calcification within the urinary bladder which could be from a tiny bladder stone. Electronically signed by: Paul Dutton MD (04/28/2020 2:38 AM) [id number]
[2020-04-28 03:16] VITALS: BP 129/107
[2020-04-29] MEDS ORDERED: PROC10TA57 PO (14:55)
[2020-04-29] MEDS ORDERED: TAMS0.4C97 PO (14:55)
[2020-04-29] MEDS ORDERED: CIPR500T94 PO (14:55)
== END 2020-04-28 03:20 | disposition home or self-care (01) ==
LOC: ER 00:54
DX: R10.84 Generalized abdominal pain (principal); R11.2 Nausea with vomiting, unspecified; R31.9 Hematuria, unspecified; F12.90 Cannabis use, unspecified, uncomplicated; Q86.0 Fetal alcohol syndrome (dysmorphic); F17.200 Nicotine dependence, unspecified, uncomplicated; Z98.890 Other specified postprocedural states
CPT/HCPCS: 36415; 74176; 80053; 83690; 85025; 96361; 96374; 96375; 99285; J1630; J2270; J7120

== ENCOUNTER 2020-04-29 12:14 | Emergency (ER) | payer SELFPAY ==
[~2020-04-29] VITALS: Ht 182.9 cm; Wt 54.5 kg
[2020-04-29] MEDS ORDERED: FAMOTIDINE 20 MG/2 ML VIAL IVP ONE (13:00)
[2020-04-29] MEDS ORDERED: IV NORMAL SALINE 1000ML BAG 1,000 ML IV ONE (13:00)
[2020-04-29] MEDS ORDERED: PROCHLORPERAZINE 10 MG/2 ML VIAL. IV ONE (13:00)
--- NOTE | 2020-04-29 13:14 | PHYS DOC ---
Past Medical History Past Medical History: Renal Disease, Other Additional Past Medical Histor: ALCOHOL SYNDROME, cystic kidneys, CYCLIC VOMITING SYNDROME (RACHAEL SIMON APRN) Past Surgical History: Other Additional Past Surgical Histo: LEFT NEPHRECTOMY 2017 (RACHAEL SIMON APRN) Smoking Status: Current Every Day Smoker Alcohol Use: None Drug Use: Marijuana (RACHAEL SIMON APRN) General Adult EDM: Chief Complaint: NAUSEA/VOMITING/DIARRHA HPI: HPI: Patient is a 30 year old male with history of 1 kidney, kidney disease, cyclic vomiting that has been attributed to marijuana, who presents to the ED today complaining of fatigue, nausea vomiting, symptoms since yesterday. Patient was seen in the ED yesterday for the same complaint, it appears he was discharged after refusing to give urine. Patient denies any fever. Denies any concerns for COVID19 and states he does not want to be tested. Is requesting IV fluids, nausea medicine and pain medicine right now. He states he has generalized abdominal pain mild and intermittent due to the vomiting. He states his vomiting is exacerbates his abdominal pain. He also states he had stents placed a month ago for kidney stones in [facility]. (RACHAEL SIMON REPRODUCTIVE HEALTHCARE ASSISTANT) Review of Systems: Review of Systems: Constitutional: Reports fatigue. Denies fever or chills. [] Eyes: Denies change in visual acuity. [] HENT: Denies nasal congestion or sore throat. [] Respiratory: Denies cough or shortness of breath. [] Cardiovascular: Denies chest pain or edema. [] GI: Reports abdominal pain, nausea vomiting, denies bloody stools or diarrhea. [] : Denies dysuria. [] Musculoskeletal: Denies back pain or joint pain. [] Integument: Denies rash. [] Neurologic: Denies headache, focal weakness or sensory changes. [] Endocrine: Denies polyuria or polydipsia. [] Lymphatic: Denies swollen glands. [] Psychiatric: Denies depression or anxiety. [] (RACHAEL SIMON REPRODUCTIVE HEALTHCARE ASSISTANT) Heart Score: Risk Factors: Risk Factors: DM, Current or recent (<one month) smoker, HTN, HLP, family history of CAD, obesity. Risk Scores: Score 0 - 3: 2.5% MACE over next 6 weeks - Discharge Home Score 4 - 6: 20.3% MACE over next 6 weeks - Admit for Clinical Observation Score 7 - 10: 72.7% MACE over next 6 weeks - Early Invasive Strategies (RACHAEL SIMON REPRODUCTIVE HEALTHCARE ASSISTANT) Current Medications: Current Medications Medications (Trade) Dose Ordered Sig/Joel Start Time Stop Time Status Last Admin Dose Admin Famotidine (Pepcid Vial) 20 mg 1X ONCE 04/29/20 13:00 04/29/20 13:02 DC Haloperidol Lactate (Haldol Inj) 5 mg 1X ONCE 04/29/20 13:15 04/29/20 13:16 Morphine Sulfate (Morphine Sulfate) 5 mg 1X ONCE 04/29/20 13:15 04/29/20 13:16 Prochlorperazine Edisylate (Compazine) 10 mg 1X ONCE 04/29/20 13:00 04/29/20 13:02 DC Sodium Chloride 1,000 ml @ 1,000 mls/hr 1X ONCE 04/29/20 13:00 04/29/20 13:59 (RACHAEL SIMON REPRODUCTIVE HEALTHCARE ASSISTANT) Allergies: Allergies: Allergies Coded Allergies Type Severity Reaction Last Updated Verified No Known Drug Allergies 03/18/16 No (RACHAEL SIMON REPRODUCTIVE HEALTHCARE ASSISTANT) Physical Exam: PE: Constitutional: Well developed, well nourished, no acute distress, non-toxic appearance. [] HENT: Normocephalic, atraumatic, bilateral external ears normal, oropharynx moist, no oral exudates, nose normal. [] Eyes: PERRLA, EOMI, conjunctiva normal, no discharge. [] Neck: Normal range of motion, no tenderness, supple, no stridor. [] Cardiovascular:Heart rate regular rhythm, no murmur [] Lungs & Thorax: Bilateral breath sounds clear to auscultation [] Abdomen: Bowel sounds normal, soft, no tenderness, no masses, no pulsatile masses. [] Skin: Warm, dry, no erythema, no rash. [] Back: No tenderness, no CVA tenderness. [] Extremities: No tenderness, no cyanosis, no clubbing, ROM intact, no edema. [] Neurologic: Alert and oriented X 3, normal motor function, normal sensory function, no focal deficits noted. [] Psychologic: flat affect (RACHAEL SIMON REPRODUCTIVE HEALTHCARE ASSISTANT) Current Patient Data: Vital Signs: Vital Signs Date Time Temp Pulse Resp B/P (MAP) Pulse Ox O2 Delivery O2 Flow Rate FiO2 04/29/20 12:35 98.3 65 18 114/74 (87) 100 Room Air 98.3 (RACHAEL SIMON APRN) EKG: EKG: [] (RACHAEL SIMON APRN) Radiology/Procedures: Radiology/Procedures: [] (RACHAEL SIMON APRN) Course & Med Decision Making: Course & Med Decision Making Pertinent Labs and Imaging studies reviewed. (See chart for details) This is a 30-year-old male patient well-known to this ED presenting today complaining of fatigue, nausea vomiting and abdominal pain, symptoms since yesterday, patient was seen yesterday in the ED for the same complaints. Patient has previous history of marijuana induced cyclic vomiting. CBC with a normal WBC, CMP with creatinine of 1.6, BUN is normal, this is much better than patient's baseline of 1.9. Urine noted for large amount of blood, large amount of leukocytes patient was in the ED yesterday and had a CAT scan of the abdomen and pelvic that was noted for-nonobstructive left renal stone with mild prominence of left extrarenal pelvis and nephroureteral stent. Patient was given Rocephin IV in the ED. His pain is well controlled he desires to go home. He was discharged with Cipro, Zofran and flomax. He was instructed to follow-up with his urologist as soon as possible. (RACHAEL SIMON APRN) Dragon Disclaimer: Dragon Disclaimer: This electronic medical record was generated, in whole or in part, using a voice recognition dictation system. (RACHAEL SIMON APRN) Departure Departure Impression: Primary Impression: Nausea and vomiting Qualified Codes: R11.2 - Nausea with vomiting, unspecified Additional Impressions: Acute on chronic renal failure Qualified Codes: N17.9 - Acute kidney failure, unspecified; N18.9 - Chronic kidney disease, unspecified Pyelonephritis Disposition: 01 HOME, SELF-CARE Condition: STABLE Referrals: NO PCP (PCP) follow up with your urologist as soon as possible Patient Instructions: Nausea and Vomiting, [id number], Pyelonephritis, Adult, [id number] Additional Instructions: You were evaluated in the emergency room and noted to have infection in your urine, complete your antibiotics. Please follow-up with your urologist as soon as possible. Scripts Tamsulosin Hcl (FLOMAX) 0.4 Mg Cap.er.24h 1 CAP PO DAILY, #7 CAP 11 Refills Prov: RACHAEL SIMON APRN 04/29/20 Prochlorperazine Maleate (Compazine) 10 Mg Tablet 1 TAB PO Q6HRS for 7 Days, #28 TAB 0 Refills Prov: RACHAEL SIMON APRN 04/29/20 Ciprofloxacin Hcl (CIPRO) 500 Mg Tablet 1 TAB PO BID for 7 Days, #14 TAB 0 Refills Prov: RACHAEL SIMON APRN 04/29/20 Justicifation of Admission Dx: Justifications for Admission: Justification of Admission Dx: N/A (RACHAEL SIMON APRN) Attending Signature Attending Signature I have reviewed the PA/BASIN FINISH OPERATOR TIG WELDER's note and plan of care. I was available for consultation as needed during the patient's visit in the emergency department. I agree with the clinical impression, plan, and disposition. (OLGA LIDIA STEPHENSON DO) RACHAEL SIMON APRN Apr 29, 2020 13:14 OLGA LIDIA STEPHENSON DO Apr 29, 2020 18:43
[2020-04-29] MEDS ORDERED: HALOPERIDOL LACTATE 5 MG/ML VIAL. IVP ONE (13:15)
[2020-04-29] MEDS ORDERED: MORPHINE SULFATE 10 MG/ML VIAL. IV ONE (13:15)
[2020-04-29 13:37] LABS: BASO # 0.1 x10^3/uL (0.0-0.2); BASO % 1 % (0-3); EOS % 1 % (0-3); HEMATOCRIT 36.6 % (39.0-53.0); HEMOGLOBIN 12.3 g/dL (13.0-17.5); LYMPH # 1.9 x10^3/uL (1.0-4.8); LYMPH % 28 % (24-48); MEAN CORPUSCULAR HEMOGLOBIN 29 pg (25-35); MEAN CORPUSCULAR HGB CONC 34 g/dL (31-37); MEAN CORPUSCULAR VOLUME 87 fL (79-100); MONO # 0.6 x10^3/uL (0.0-1.1); MONO % 8 % (0-9); NEUT # 4.1 x10^3/uL (1.8-7.7); NEUT % 62 % (31-73); PLATELET COUNT 440 x10^3/uL (140-400); RED BLOOD COUNT 4.22 x10^6/uL (4.30-5.70); RED CELL DISTRIBUTION WIDTH 12.5 % (11.5-14.5); WHITE BLOOD COUNT 6.7 x10^3/uL (4.0-11.0)
[2020-04-29 13:44] LABS: BILIRUBIN,URINE MODERATE (NEG); CLARITY,URINE CLOUDY; COLOR,URINE RED; NITRITE,URINE NEGATIVE (NEG); PROTEIN,URINE 100 mg/dL (NEG-TRACE)
[2020-04-29 13:52] LABS: BARBITURATES NEG (NEG); BENZODIAZEPINES NEG (NEG); CANNABINOIDS POS (NEG); COCAINE NEG (NEG); METHADONE NEG (NEG); OPIATES POS (NEG); PHENCYCLIDINE NEG (NEG)
[2020-04-29 13:53] LABS: AMPHETAMINE/METHAMPHETAMINE NEG (NEG)
[2020-04-29 13:55] LABS: CALCIUM 9.4 mg/dL (8.5-10.1); CREATININE 1.5 mg/dL (0.7-1.3); GFR 66.9; POTASSIUM 3.4 mmol/L (3.5-5.1)
[2020-04-29 14:01] LABS: BACTERIA,URINE FEW /HPF (0-FEW); RBC,URINE TNTC /HPF (0-2); SQUAMOUS EPITHELIAL CELL,UR OCC /LPF; WBC,URINE TNTC /HPF (0-4)
[2020-04-29 14:02] LABS: ALBUMIN 3.2 g/dL (3.4-5.0); ALBUMIN/GLOBULIN RATIO 0.7 (1.0-1.7); MAGNESIUM 2.1 mg/dL (1.8-2.4); TOTAL BILIRUBIN 0.6 mg/dL (0.2-1.0); TOTAL PROTEIN 7.6 g/dL (6.4-8.2)
[2020-04-29] MEDS ORDERED: cefTRIAXone IV Push 1 GM VIAL. IVP ONE (14:15)
[2020-04-29] MEDS ORDERED: CIPR500T94 PO (14:55)
[2020-04-29] MEDS ORDERED: PROC10TA57 PO (14:55)
[2020-04-29] MEDS ORDERED: TAMS0.4C97 PO (14:55)
[2020-04-29 15:02] VITALS: BP 113/76
== END 2020-04-29 15:12 | disposition home or self-care (01) ==
LOC: ER 12:14
DX: N18.9 Chronic kidney disease, unspecified (principal); R11.2 Nausea with vomiting, unspecified; N12 Tubulo-interstitial nephritis, not specified as acute or chronic; R10.84 Generalized abdominal pain; R53.83 Other fatigue; Q86.0 Fetal alcohol syndrome (dysmorphic); F17.200 Nicotine dependence, unspecified, uncomplicated; F12.90 Cannabis use, unspecified, uncomplicated; Z98.890 Other specified postprocedural states
CPT/HCPCS: 36415; 80053; 80307; 81001; 83690; 83735; 85025; 96361; 96374; 96375; 99285; G0480; J0696; J0780; J1630; J2270; J3490; J7030

== ENCOUNTER 2020-06-12 20:35 | Emergency (ER) | payer SELFPAY ==
[~2020-06-12] VITALS: Ht 182.9 cm; Wt 54.0 kg
[~2020-06-12 20:35] MED LIST changes: +CIPR500T94 PO; +PROC10TA57 PO; +TAMS0.4C97 PO
[2020-06-12] MEDS ORDERED: ONDANSETRON PF 4 MG/2 ML VIAL. IVP ONE (21:15)
[2020-06-12] MEDS ORDERED: HALOPERIDOL LACTATE 5 MG/ML VIAL. IVP ONE (21:15)
[2020-06-12] MEDS ORDERED: IV NORMAL SALINE 1000ML BAG 1,000 ML IV ONE (21:15)
[2020-06-12] MEDS ORDERED: LIDO:MAALOX 1:1 20 ML SINGLE DOSE. SWSW ONE (21:15)
[2020-06-12 21:50] LABS: BASO # 0.1 x10^3/uL (0.0-0.2); BASO % 1 % (0-3); EOS % 0 % (0-3); HEMATOCRIT 46.7 % (39.0-53.0); HEMOGLOBIN 15.5 g/dL (13.0-17.5); LYMPH # 2.7 x10^3/uL (1.0-4.8); LYMPH % 34 % (24-48); MEAN CORPUSCULAR HEMOGLOBIN 29 pg (25-35); MEAN CORPUSCULAR HGB CONC 33 g/dL (31-37); MEAN CORPUSCULAR VOLUME 88 fL (79-100); MONO # 0.6 x10^3/uL (0.0-1.1); MONO % 8 % (0-9); NEUT # 4.6 x10^3/uL (1.8-7.7); NEUT % 57 % (31-73); PLATELET COUNT 443 x10^3/uL (140-400); RED BLOOD COUNT 5.33 x10^6/uL (4.30-5.70); RED CELL DISTRIBUTION WIDTH 13.8 % (11.5-14.5)
[2020-06-12 22:13] LABS: PLT ESTIMATE ADEQUATE (ADEQUATE)
--- NOTE | 2020-06-12 23:20 | PHYS DOC ---
Past Medical History Past Medical History: Renal Disease, Other Additional Past Medical Histor: ALCOHOL SYNDROME, cystic kidneys, CYCLIC VOMITING SYNDROME (RACHAEL SIMON APRN) Past Surgical History: Other Additional Past Surgical Histo: LEFT NEPHRECTOMY 2017 (RACHAEL SIMON APRN) Smoking Status: Current Every Day Smoker Alcohol Use: None Drug Use: Marijuana Social History Narrative: HE USED MARIJUANA A WEEK AGO. (RACHAEL SIMON APRN) General Adult EDM: Chief Complaint: NAUSEA/VOMITING/DIARRHA HPI: HPI: Patient is a 30 year old this is a 30-year-old male patient with history of marijuana use and cyclic vomiting presenting today complaining of nausea and vomiting that began yesterday after smoking marijuana. Patient denies any hematemesis. Denies any melena. Denies any diarrhea, he reports generalized intermittent mild abdominal pain worse with vomiting. (RACHAEL SIMON APRN) Review of Systems: Review of Systems: Constitutional: Denies fever or chills. [] Eyes: Denies change in visual acuity. [] HENT: Denies nasal congestion or sore throat. [] Respiratory: Denies cough or shortness of breath. [] Cardiovascular: Denies chest pain or edema. [] GI: Reports abdominal pain, nausea vomiting, denies bloody stools or diarrhea. [] : Denies dysuria. [] Musculoskeletal: Denies back pain or joint pain. [] Integument: Denies rash. [] Neurologic: Denies headache, focal weakness or sensory changes. [] Psychiatric: Denies depression or anxiety. [] (RACHAEL SIMON APRN) Heart Score: Risk Factors: Risk Factors: DM, Current or recent (<one month) smoker, HTN, HLP, family history of CAD, obesity. Risk Scores: Score 0 - 3: 2.5% MACE over next 6 weeks - Discharge Home Score 4 - 6: 20.3% MACE over next 6 weeks - Admit for Clinical Observation Score 7 - 10: 72.7% MACE over next 6 weeks - Early Invasive Strategies (RACHAEL SIMON APRN) Current Medications: Current Medications Medications (Trade) Dose Ordered Sig/Joel Start Time Stop Time Status Last Admin Dose Admin Haloperidol Lactate (Haldol Inj) 5 mg 1X ONCE 06/12/20 21:15 06/12/20 21:18 DC 06/12/20 21:46 5 MG Multi-Ingredient Mouthwash/Gargle (Gi Cocktail) 20 ml 1X ONCE 06/12/20 21:15 06/12/20 21:18 DC 06/12/20 21:45 20 ML Ondansetron HCl (Zofran) 4 mg 1X ONCE 06/12/20 21:15 06/12/20 21:18 DC 06/12/20 21:45 4 MG Sodium Chloride 1,000 ml @ 1,000 mls/hr 1X ONCE 06/12/20 21:15 06/12/20 22:14 DC 06/12/20 21:44 1,000 MLS/HR (RACHAEL SIMON APRN) Allergies: Allergies: Allergies Coded Allergies Type Severity Reaction Last Updated Verified No Known Drug Allergies 03/18/16 No (RACHAEL SIMON APRN) Physical Exam: PE: Constitutional: Thin appearing patient, no acute distress, non-toxic appearance. [] HENT: Normocephalic, atraumatic, bilateral external ears normal, oropharynx moist, no oral exudates, nose normal. [] Eyes: PERRLA, EOMI, conjunctiva normal, no discharge. [] Neck: Normal range of motion, no tenderness, supple, no stridor. [] Cardiovascular:Heart rate regular rhythm, no murmur [] Lungs & Thorax: Bilateral breath sounds clear to auscultation [] Abdomen: Dry heaving in the ED. Bowel sounds normal, soft, no tenderness, no masses, no pulsatile masses. [] Skin: Warm, dry, no erythema, no rash. [] Back: No tenderness, no CVA tenderness. [] Extremities: No tenderness, no cyanosis, no clubbing, ROM intact, no edema. [] Neurologic: Alert and oriented X 3, normal motor function, normal sensory function, no focal deficits noted. [] Psychologic: Affect normal, judgement normal, mood normal. [] (RACHAEL SIMON [employer] WORKER HELPER) Current Patient Data: Labs: Laboratory Tests Test 06/12/20 21:37 White Blood Count 8.0 x10^3/uL (4.0-11.0) Red Blood Count 5.33 x10^6/uL (4.30-5.70) Hemoglobin 15.5 g/dL (13.0-17.5) Hematocrit 46.7 % (39.0-53.0) Mean Corpuscular Volume 88 fL (79-100) Mean Corpuscular Hemoglobin 29 pg (25-35) Mean Corpuscular Hemoglobin Concent 33 g/dL (31-37) Red Cell Distribution Width 13.8 % (11.5-14.5) Platelet Count 443 x10^3/uL (140-400) H Neutrophils (%) (Auto) 57 % (31-73) Lymphocytes (%) (Auto) 34 % (24-48) Monocytes (%) (Auto) 8 % (0-9) Eosinophils (%) (Auto) 0 % (0-3) Basophils (%) (Auto) 1 % (0-3) Neutrophils # (Auto) 4.6 x10^3/uL (1.8-7.7) Lymphocytes # (Auto) 2.7 x10^3/uL (1.0-4.8) Monocytes # (Auto) 0.6 x10^3/uL (0.0-1.1) Eosinophils # (Auto) 0.0 x10^3/uL (0.0-0.7) Basophils # (Auto) 0.1 x10^3/uL (0.0-0.2) Platelet Estimate Adequate (ADEQUATE) Giant Platelets Occ Laboratory Tests 06/12/20 21:37 Vital Signs: Vital Signs Date Time Temp Pulse Resp B/P (MAP) Pulse Ox O2 Delivery O2 Flow Rate FiO2 06/12/20 20:50 97.9 77 20 139/112 (121) 100 Room Air 97.9 (MUTUNGA,RACHAEL [employer] WORKER HELPER) Labs: Laboratory Tests Test 06/12/20 21:37 06/13/20 00:35 White Blood Count 8.0 x10^3/uL Red Blood Count 5.33 x10^6/uL Hemoglobin 15.5 g/dL Hematocrit 46.7 % Mean Corpuscular Volume 88 fL Mean Corpuscular Hemoglobin 29 pg Mean Corpuscular Hemoglobin Concent 33 g/dL Red Cell Distribution Width 13.8 % Platelet Count 443 x10^3/uL Neutrophils (%) (Auto) 57 % Lymphocytes (%) (Auto) 34 % Monocytes (%) (Auto) 8 % Eosinophils (%) (Auto) 0 % Basophils (%) (Auto) 1 % Neutrophils # (Auto) 4.6 x10^3/uL Lymphocytes # (Auto) 2.7 x10^3/uL Monocytes # (Auto) 0.6 x10^3/uL Eosinophils # (Auto) 0.0 x10^3/uL Basophils # (Auto) 0.1 x10^3/uL Platelet Estimate Adequate Giant Platelets Occ Sodium Level 141 mmol/L Potassium Level 3.3 mmol/L Chloride Level 106 mmol/L Carbon Dioxide Level 26 mmol/L Anion Gap 9 Blood Urea Nitrogen 11 mg/dL Creatinine 1.4 mg/dL Estimated GFR (Cockcroft-Gault) 72.5 BUN/Creatinine Ratio 8 Glucose Level 106 mg/dL Calcium Level 9.1 mg/dL Total Bilirubin 1.1 mg/dL Aspartate Amino Transf (AST/SGOT) 17 U/L Alanine Aminotransferase (ALT/SGPT) 30 U/L Alkaline Phosphatase 110 U/L Total Protein 7.2 g/dL Albumin 3.9 g/dL Albumin/Globulin Ratio 1.2 Lipase 68 U/L Ethyl Alcohol Level < 10 mg/dL Current Medications Medications (Trade) Dose Ordered Sig/Joel Route PRN Reason Start Time Stop Time Status Last Admin Dose Admin Sodium Chloride 1,000 ml @ 1,000 mls/hr 1X ONCE IV 06/12/20 21:15 06/12/20 22:14 DC 06/12/20 21:44 Ondansetron HCl (Zofran) 4 mg 1X ONCE IVP 06/12/20 21:15 06/12/20 21:18 DC 06/12/20 21:45 Multi-Ingredient Mouthwash/Gargle (Gi Cocktail) 20 ml 1X ONCE SWSW 06/12/20 21:15 06/12/20 21:18 DC 06/12/20 21:45 Haloperidol Lactate (Haldol Inj) 5 mg 1X ONCE IVP 06/12/20 21:15 06/12/20 21:18 DC 06/12/20 21:46 Potassium Chloride (Klor-Con) 20 meq 1X ONCE PO 06/13/20 01:15 06/13/20 01:16 Vital Signs: Vital Signs Date Time Temp Pulse Resp B/P (MAP) Pulse Ox O2 Delivery O2 Flow Rate FiO2 06/12/20 20:50 97.9 77 20 139/112 (121) 100 Room Air 97.9 (KIMO GARRISON MD) EKG: EKG: [] (RACHAEL SIMON APRN) Radiology/Procedures: Radiology/Procedures: [] (RACHAEL SIMON APRN) Course & Med Decision Making: Course & Med Decision Making Pertinent Labs and Imaging studies reviewed. (See chart for details) This is a 30-year-old male patient well-known to this ED for cyclic vomiting presenting today complaining of nausea vomiting as well as generalized abdominal pain that began yesterday after using marijuana CBC with no acute findings, CMP is pending. Care transferred to (RACHAEL SIMON APRN) Course & Med Decision Making Patient was seen initially by a nurse practitioner Rachael, I went to reassess him and he was buried with his head under the blankets, I asked him at least 3 times get out from under the covers like exam him he kept ignoring me when I left he said okay I will do it I went back and asked him to go through his mask so I could examine him he became belligerent and started cussing at me at this point I feel like he is stable for discharge. (KIMO GARRISON MD) Dragon Disclaimer: Dragon Disclaimer: This electronic medical record was generated, in whole or in part, using a voice recognition dictation system. (RACHAEL SIMON APRN) Departure Departure Impression: Primary Impression: Cyclic vomiting syndrome Additional Impression: Marijuana abuse Disposition: 01 DC HOME SELF CARE/HOMELESS Condition: STABLE Referrals: NO PCP (PCP) [facility] [address] [place] [address] [facility] [address] [place] [address] [facility] [address] Patient Instructions: Cyclic Vomiting Syndrome, Marijuana Abuse-Brief Additional Instructions: EMERGENCY DEPARTMENT GENERAL DISCHARGE INSTRUCTIONS THANK YOU for coming to [facility] Emergency Department (ED) today and trusting us with your care. We trust that you had a positive experience in our Emergency Department. If you wish to speak to the department Management you can contact the history department chair at . YOUR FOLLOW UP INSTRUCTIONS ARE FOLLOWS: Do you have a private doctor? If you do not have a private doctor, please ask for a resource list of physicians or clinics that may be able to assist you with follow up care. The Emergency Physician has interpreted your x-rays. The X-ray specialist will also review them. If there is a change in the findings you will be notified in 48 hours when at all possible. A lab test or lab culture may have been done, your results will be reviewed and you will be notified if you need a change in treatment. ADDITIONAL INSTRUCTIONS AND INFORMATION Your care today has been supervised by a physician who is specially trained in emergency care. Many problems require more than one evaluation for a complete diagnosis and treatment. We recommend that you schedule your follow up appointment as recommended to ensure complete treatment of your illness or injury. If you are unable to obtain follow up care and continue to have a problem, or if your condition worsens we recommend that you return to the ED. We are not able to safely determine your condition over the phone nor are we able to give sound medical advice over the phone. For these safety reasons, if you call for medical advice we will ask you to come to the ED for further evaluation If you have any questions regarding these discharge instructions please call the ED at . SAFETY INFORMATION In the interest of safety, wellness, and injury prevention; we encourage you to wear your seatbelt, if you smoke; quit smoking, and we encourage your family to use protective helmet for bicycling and other sporting events that present an increased risk for head injury. IF YOUR SYMPTOMS WORSEN OR NEW SYMPTOMS DEVELOP, OR YOU HAVE CONCERNS ABOUT YOUR CONDITION; OR IF YOUR CONDITION WORSENS WHILE YOU ARE WAITING FOR YOUR FOLLOW UP APPOINTMENT; EITHER CONTACT YOUR PRIMARY CARE DOCTOR, THE PHYSICIAN WHOSE NAME AND NUMBER YOU WERE GIVEN, OR RETURN TO THE ED IMMEDIATELY. Scripts Ondansetron Hcl (ZOFRAN) 4 Mg Tablet 1 TAB PO PRN Q6-8HRS, #5 TAB Prov: KIMO GARRISON MD 06/13/20 RACHAEL SIMON APRN Jun 12, 2020 23:19 KIMO GARRISON MD Jun 13, 2020 01:11
[2020-06-13 00:53] LABS: CALCIUM 9.1 mg/dL (8.5-10.1); CREATININE 1.4 mg/dL (0.7-1.3); GFR 72.5; POTASSIUM 3.3 mmol/L (3.5-5.1)
[2020-06-13 00:58] LABS: ALBUMIN 3.9 g/dL (3.4-5.0); ALBUMIN/GLOBULIN RATIO 1.2 (1.0-1.7); TOTAL BILIRUBIN 1.1 mg/dL (0.2-1.0); TOTAL PROTEIN 7.2 g/dL (6.4-8.2)
[2020-06-13 01:09] VITALS: BP 132/95
[2020-06-13] MEDS ORDERED: ONDA4TAB7 PO (01:11)
[2020-06-13] MEDS ORDERED: POTASSIUM CHLORIDE 20 MEQ TABLET.ER. PO ONE (01:15)
== END 2020-06-13 01:19 | disposition home or self-care (01) ==
LOC: ER 20:35
DX: R11.2 Nausea with vomiting, unspecified (principal); R10.84 Generalized abdominal pain; F12.90 Cannabis use, unspecified, uncomplicated; F17.200 Nicotine dependence, unspecified, uncomplicated; Z98.890 Other specified postprocedural states; Z90.89 Acquired absence of other organs
CPT/HCPCS: 36415; 80053; 83690; 85025; 96361; 96374; 96375; 99285; G0480; J1630; J2405; J7030